=== PATIENT | male | born 1950 | race Caucasian/White ===

== ENCOUNTER 2016-05-22 12:29 | Inpatient (IN) | payer OTHER ==
--- NOTE | ~2016-05-22 | CN ---
Consultation Report [facility] [address] [place]. [address] NAME: JHOAN HUBER : 48 STATUS : ADM IN PAT#: [id number] AGE: 65 ADM/REG DATE : 05/22/16 MR#: [id number] REPORT SERV DATE: 05/24/16 DICTATED BY: DICKSON SOLORZANO DATE: 05/24/16 REPORT STATUS : Draft TRANSCRIBED BY: MODL DATE: 05/24/16 CONSULT REPORT DATE OF CONSULTATION: 05/24/2016 NURSE PRACTITIONER WITH [facility] REASON FOR CONSULTATION: Multivessel coronary artery disease. HISTORY OF PRESENT ILLNESS: This is a pleasant 65-year-old male with no significant past medical history, who was admitted on 05/22/2016 after having 3 weeks of progressive shortness of breath with cough. He thought this might be due to bronchitis which he occasionally gets. He had an outpatient workup done which showed an elevated BNP of 550 and a chest x-ray that showed right pleural effusion and diffuse infiltrates suggestive of a new diagnosis of CHF. He was admitted to [facility] and troponin upon admission was 1.1. The patient was diuresed and his symptoms improved. He was stabilized and taken for cardiac catheterization today and found to have multivessel coronary artery disease including a 95% distal left main coronary artery with 95% stenosis to his mid LAD with [id number] collaterals. He also has a 75% second obtuse marginal and a heavily calcified but nonobstructive right coronary artery. There was no mention of valvular abnormality and a left ventriculogram was not performed. CT surgery was consulted for evaluation of CAB. Currently the patient is recovering after radial catheterization with no complaints of chest pain or shortness of breath. The patient's son is upstairs in the patient's room and I updated him as well. PAST MEDICAL HISTORY: Osteoarthritis and occasional bronchitis. FAMILY HISTORY: Reviewed and noncontributory. SOCIAL HISTORY: The patient lives alone, disabled due to his arthritis. He says he has good family support. No alcohol abuse or use of illicit drugs. He does smoke cigarettes around a pack a day for 30 years. SURGICAL HISTORY: No major surgeries. ALLERGIES: NO KNOWN DRUG ALLERGIES. HOME MEDICATIONS: Mobic 7.5 mg p.o. b.i.d. as needed; hydrocodone 5/325 mg p.o. b.i.d. as needed; aspirin 325 mg per day; and ProAir HFA inhaler use as directed as needed. REVIEW OF SYSTEMS: A 10-point review of systems was obtained and is negative other than that in the HPI. PHYSICAL EXAMINATION: Consultation Report [facility] [id number] [place]. [address] NAME: JHOAN HUBER : [birth year] STATUS : ADM IN PAT#: [id number] AGE: 65 ADM/REG DATE : 05/22/16 MR#: [id number] REPORT SERV DATE: 05/24/16 DICTATED BY: DICKSON SOLORZANO DATE: 05/24/16 REPORT STATUS : Draft TRANSCRIBED BY: NELSY DATE: 05/24/16 VITAL SIGNS: From today temperature 98.1, heart rate 94, blood pressure 107/75, respiratory rate 20, and O2 saturation 94% on 2 L. GENERAL: Pleasant male, in no acute distress. NEUROLOGIC: Alert and oriented x3. Pupils exhibit PERRLA. HEENT: Head normocephalic and atraumatic. Several missing teeth but no obvious abscess. LUNGS: Clear to auscultation bilaterally with normal effort. CARDIAC: S1, S2 with no murmurs, rubs, or gallops. ABDOMEN: Soft, obese, and nontender with active bowel sounds. EXTREMITIES: Free of cyanosis, clubbing, or edema. LAB DATA: White blood cell count 7.8, hemoglobin 14, hematocrit 40, and platelets 224. Sodium 131, potassium 3.3, chloride 89, bicarbonate 28, BUN 14, and creatinine 0.7. Glucose 103. ASSESSMENT AND PLAN: This is a 65-year-old male with no significant past medical history who was admitted with shortness of breath and new onset CHF, taken for cardiac catheterization today and found to have severe flow-limiting disease with 95% distal left main coronary artery as above. Currently echocardiogram and carotid ultrasound are pending. I updated the patient as to the extent of his heart disease and why he needs bypass surgery. I discussed the risk and benefits of surgery as well as his STS risk scores. STS risk stratification for him and this particular surgery include an overall mortality of 0.8% and a morbidity mortality of 9.3%. Currently the patient is asymptomatic but we would like to proceed as soon as possible. He has been diuresed well and currently lungs are clear and he is on minimal oxygen. We will discuss plan of care with Dr. Adams and tentatively plan him for tomorrow afternoon. We will get a CT scan of the chest without contrast due to his longstanding history of tobacco abuse as well as bilateral lower extremity venous mapping. We would like to thank you for the consultation and we look forward to helping you take care of Mr. Jhoan Huber. Please let us know if we could be of any further assistance. ENE/NELSY Dickson Solorzano NP / [id number] CC: Lico Reed M.D.
--- NOTE | ~2016-05-22 | CN ---
Consultation Report [facility] [address] [place]. [address] NAME: JHOAN HUBER : [birth year] STATUS : ADM IN [facility]#: [id number] AGE: 65 ADM/REG DATE : 05/22/16 MR#: [id number] REPORT SERV DATE: 05/25/16 DICTATED BY: SANTOS YOUNG DATE: 05/25/16 REPORT STATUS : Draft TRANSCRIBED BY: MODL DATE: 05/25/16 CONSULTATION DATE OF CONSULTATION: REASON FOR REFERRAL: Probable lung cancer. HISTORY OF PRESENT ILLNESS: Mr. Huber is a 65-year-old gentleman who presented to the hospital with chest pain. He was found to have a non-ST elevation myocardial infarction. He underwent coronary catheterization and was found to have three-vessel coronary artery disease. He had an echocardiogram which showed an ischemic cardiomyopathy. He is dyspneic at rest and has orthopnea associated with CHF. Imaging revealed a large mediastinal mass. I personally reviewed a CT scan showing a right pleural effusion, enlarged anterior mediastinal adenopathy, and subcarinal adenopathy. I am worried about lung cancer in particular small cell carcinoma. He has occasional bronchitis and has been a heavy cigarette smoker. He has osteoarthritis that is well controlled. PAST MEDICAL HISTORY: Coronary artery disease, cardiomyopathy, bronchitis, osteoarthritis. FAMILY HISTORY: Negative for lung cancer. SOCIAL HISTORY: He lives alone. He is disabled. He does not use alcohol. He has been smoking a pack per day for approximately 30 years. REVIEW OF SYSTEMS: Complete review of systems was negative except as per the HPI. PHYSICAL EXAMINATION: GENERAL: Reveals a well-developed gentleman, who is dyspneic at rest 96.9, 121/77, 89, 18. HEENT: Eye exam shows the lids and conjunctivae are without lesions. Mouth: The lips and gums show no abnormalities. The oropharynx is without thrush or stomatitis. NECK: Supple. There is no thyromegaly. LYMPH NODE: Exam shows no palpable adenopathy. CARDIOVASCULAR: Exam reveals a regular rate and rhythm. There is 1+ lower extremity edema. LUNGS: Show decreased breath sounds on the right. SKIN: Exam shows no rashes or nodules. NEUROLOGIC: Exam shows grossly intact cranial nerves and strength. PSYCHIATRIC: Exam shows normal insight and judgment with appropriate mood and affect. ASSESSMENT: 1. Probable lung cancer. I think we need to make a tissue diagnosis. I will ask Pulmonary to assist us. I think starting with a thoracentesis which may offer symptom Consultation Report [facility] [id number] [place] [address] NAME: JHOAN HUBER : [birth year] STATUS : ADM IN PAT#: [id number] AGE: 65 ADM/REG DATE : 05/22/16 MR#: [id number] REPORT SERV DATE: 05/25/16 DICTATED BY: SANTOS YOUNG DATE: 05/25/16 REPORT STATUS : Draft TRANSCRIBED BY: MODL DATE: 05/25/16 relief will likely be our best bet. These nodes, I suspect could be biopsied by bronchoscopy or by CT-guided biopsy. 2. Dyspnea, likely need thoracentesis. 3. Three-vessel coronary artery disease and cardiomyopathy. This will complicate any therapy for cancer. This is overall an unfortunate situation. I will be following along with you. OUMAR/NELSY Santos Young M.D. / [id number] CC: Pamela Stallworth MD
--- NOTE | ~2016-05-22 | OP ---
Record Of Operation [facility] [address] [place]. [address] NAME: JHOAN HUBER : [birth year] STATUS : ADM IN PAT#: [id number] AGE: 65 ADM/REG DATE : 05/22/16 MR#: [id number] REPORT SERV DATE: 05/28/16 DICTATED BY: ANIL FORTUNE DATE: 05/28/16 REPORT STATUS : Draft TRANSCRIBED BY: MODL DATE: 05/28/16 DATE OF PROCEDURE: 05/28/2016 TIME: 1400 hours. PROCEDURE: Ultrasound guided right-sided thoracentesis. INDICATION: Moderate right-sided pleural effusion. PROCEDURE BROADBAND ENGINEER: Joel Fortune PA-C. CONSENT: Consent was obtained from the patient prior to the procedure. Diagnostic and therapeutic indications for thoracentesis were discussed as well as risks including life- threatening bleeding, pneumothorax, and even the possible necessity of chest tube placement. Benefits and alternatives were explained at length. Prior to the procedure, imaging studies were reviewed with Dr. Gruber, who agreed with the indication to proceed with thoracentesis. PROCEDURE SUMMARY: A time out was performed verifying correct patient, procedure, site, and positioning. The patient's right side of the chest was prepped and draped in a sterile manner using chlorhexidine scrub after the appropriate level was percussed and confirmed by ultrasound. U/S images were obtained and placed within the chart. 2% lidocaine with epinephrine was then used to anesthetize the region. A finder needle was then used to aspirate serosanguinous fluid. A 10-blade scalpel was then used to make a small incision. The thoracentesis catheter was then threaded into the pleural space without difficulty. The patient had 1100 mL of serosanguinous fluid removed. No immediate complications were noted during the procedure. A post-procedure chest x-ray is pending at the time of this dictation. The fluid will be sent for several studies. ESTIMATED BLOOD LOSS: Minimal. GBS/MODL Anil Fortune PA-C / [id number] CC: Lico Reed M.D.
--- NOTE | ~2016-05-22 | CN ---
Consultation Report [facility] [address] [place]. [address] NAME: JHOAN HUBER : [birth year] STATUS : ADM IN PAT#: [id number] AGE: 65 ADM/REG DATE : 05/22/16 MR#: [id number] REPORT SERV DATE: 05/26/16 DICTATED BY: DICKSON GRUBER IV DATE: 05/26/16 REPORT STATUS : Draft TRANSCRIBED BY: MODYara DATE: 05/26/16 PULMONARY CONSULTATION. DATE OF CONSULTATION: 05/26/2016 REASON FOR REQUEST: Pleural effusion and mediastinal mass. HISTORY OF PRESENT ILLNESS: History obtained from the records and from the patient. Mr. Huber is a 65-year-old male with a history of tobacco dependency, who presents with 10 days of increasing shortness of breath with findings of multivessel coronary disease with ischemic cardiomyopathy, and extensive mediastinal adenopathy with a right pleural effusion. The patient was in his normal state of health until by his report only about 10 days ago when he developed insidious onset of increasing shortness of breath. He had some vague right lower chest discomfort that he attributed to coughing. The cough was productive of scant predominantly clear mucus that did have some specks of blood. He denied any fevers, chills, sweats. He did have intermittent wheezing that he attributed to his throat. Exercise tolerance decreased significantly, now down to 50 feet. He noted no significant change in his voice. He is not usually on bronchodilator medications nor is he on supplemental oxygen though admits to not having good maintenance healthcare. Because of his progressive symptoms he sought evaluation. He was found to have a mildly elevated troponin with radiographic findings consistent with congestive heart failure. He has subsequently underwent extensive cardiac evaluation to include cardiac catheterization demonstrating severe three-vessel coronary artery disease to include a 95% left main lesion. Ejection fraction is severely reduced, though not quantified. As part of his evaluation for bypass, he underwent chest CT scan which demonstrated extensive mediastinal adenopathy/mass with a [id number] right pleural effusion, increased interstitial markings and central lobular emphysematous changes. We are asked to assist with the diagnosis of the mediastinal mass. PULMONARY HISTORY: Remarkable for no history of childhood asthma, known adult obstructive lung disease, or previous pneumonia. He is a more than 45-pack year smoking history by his report, quitting about a month ago. 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 He refuses immunizations secondary to past "bad reactions." PAST MEDICAL HISTORY: 1. Tobacco dependency. 2. Recently diagnosed coronary artery disease. 3. Ischemic cardiomyopathy. 4. Radiographic COPD. 5. Extensive adenopathy to include the left supraclavicular region. SURGERIES: No previous surgeries. ALLERGIES: NO KNOWN DRUG ALLERGIES. Consultation Report [facility] [id number] [place]. [address] NAME: JHOAN HUBER : 48 STATUS : ADM IN PAT#: [id number] AGE: 65 ADM/REG DATE : 05/22/16 MR#: [id number] REPORT SERV DATE: 05/26/16 DICTATED BY: DICKSON GRUBER IV DATE: 05/26/16 REPORT STATUS : Draft TRANSCRIBED BY: NELSY DATE: 05/26/16 CURRENT MEDICATIONS: The patient is on aspirin 81 mg daily, Bactroban twice a day to his nose, Coreg 3.125 mg twice a day, DuoNebs every four hours, Proventil q.2 hours as needed, or zinc 220 mg daily, and vitamin C twice a day. SOCIAL HISTORY: Remarkable for the tobacco use as above. He denies alcohol or illicit drug use. He is , has two children. FAMILY HISTORY: Remarkable for mother with congestive heart failure and coronary artery disease. REVIEW OF SYSTEMS: 14 systems reviewed and pertinent positives noted above. PHYSICAL EXAMINATION: GENERAL: On physical exam, this is an elderly male, appearing older than his stated age, in no respiratory distress at rest. He is alert awake and oriented. VITAL SIGNS: Temperature is 96.7, respiratory rate is 18, saturations are 99% on 2 L via nasal cannula, pulse is 92, blood pressure is 142/71. HEENT: The patient is normocephalic, atraumatic. Extraocular movements are intact. Pupils react to light. Sclerae and conjunctivae normal. He has nasal cannula in place. He has very poor dentition with multiple eroded teeth, marked gingival disease, and one tooth on his lower jaw. There is narrowing of the posterior pharyngeal space without any other oral lesions. NECK: The patient has a very firm conglomerate mass in his left supraclavicular region. There is no clear thyromegaly or more cephalad adenopathy. CHEST: The patient has decreased breath sounds. Dullness to percussion a quarter to a third of the way up the right hemithorax. Breath sounds are symmetrically diminished with a prolonged expiratory phase. No current wheezes or rhonchi are noted. There are some basilar inspiratory crackles. CARDIOVASCULAR: Jugular venous pulsations appear to be approximately 7 cm. He has 1+ carotid upstrokes. No obvious bruit. He has a distant regular S1, S2 with no clear S3 or murmur. There are premature beats. Peripheral pulses are diminished. ABDOMEN: Protuberant, soft. There are hypoactive bowel sounds. There is no palpable hepatosplenomegaly or mass. EXTREMITIES: Demonstrate no cyanosis, clubbing, or palpable cords. NEUROLOGIC: Strength is 5/5 and sensation intact to light touch. LABORATORY DATA: Chest x-ray demonstrates the small right pleural effusion with increased interstitial markings. Chest CT scan demonstrates extensive superior mediastinal mass with some calcifications. There is a conglomerate soft tissue mass in the left supraclavicular region. There is extensive adenopathy throughout the chest. There is a central lobular emphysematous changes. There is increased interstitial markings bilaterally with a mild-to- moderate right pleural effusion. There are coronary calcifications. CBC: Hemoglobin 12.8, hematocrit 37.1, platelet count was 191,000, and white blood cell Consultation Report [address] [place]. [address] NAME: JHOAN HUBER : 48 STATUS : ADM IN [facility]#: [id number] AGE: 65 ADM/REG DATE : 05/22/16 MR#: [id number] REPORT SERV DATE: 05/26/16 DICTATED BY: DICKSON GRUBER IV DATE: 05/26/16 REPORT STATUS : Draft TRANSCRIBED BY: NELSY DATE: 05/26/16 count is 7.8. INR is 1.2, PTT is 81.3. Chemistries: Sodium is 127, potassium 3.8, chloride 91, bicarb 25, BUN 10, creatinine 0.64, glucose of 98, magnesium is 1.8. Chemistries are otherwise unremarkable. Iron is 3.7, iron binding capacity is 361. Urinalysis is unremarkable. ASSESSMENT AND PLAN: 1. Respiratory. The patient has emphysema on chest CT scan, so will be treated as if this is in exacerbation. Prednisone will be given 40 mg daily x5 days, Anoro Ellipta will be given one puff daily, albuterol will be given via EzPAP q.4 hours while awake and q.2 hours as needed. The effusion could be cardiac or secondary to malignancy. To ensure diagnosis, we will do a CT or ultrasound-guided biopsy of the left supraclavicular mass, which is less operative risks than doing EBUS. Oxygen provided as needed to maintain saturation in the 90% to 94% range. Acapella valve will be given three times a day and albuterol nebulizer will be given via EzPAP. 2. Renal. We will replace the patient's magnesium and potassium. Check tomorrow. Phosphate level will be added to the blood in the lab. Urine will be sent for sodium as well as for urine osmolality to rule out syndrome of inappropriate secretion of antidiuretic hormone. 3. Neurologic. Thiamine will be given with his debilitated state 200 mg daily, Habitrol if needed for his recent tobacco dependency. 4. Hematologic. We will hold the heparin now for biopsy, restart postprocedure. 5. Infectious Disease. I doubt this is an infectious process, however, will check procalcitonin level. We discussed the benefits of the immunization therapy and he refuses. Thank you for consulting us. We will follow up the patient with you. ISIDRA/NELSY Dickson Gruber IV, M.D. / [id number] CC: Lico Reed M.D.
--- NOTE | ~2016-05-22 | HP ---
History And Physical [facility] [id number] [place]. [address] NAME: JHOAN HUBER : [birth year] STATUS : ADM IN [facility]#: [id number] AGE: 65 ADM/REG DATE : 05/22/16 MR#: [id number] REPORT SERV DATE: 05/22/16 DICTATED BY: LICO BRASWELL DATE: 05/22/16 REPORT STATUS : Draft TRANSCRIBED BY: MODL DATE: 05/22/16 DATE OF ADMISSION: 05/22/2016 CHIEF COMPLAINT: Dyspnea, bronchitis, congestive heart failure. HISTORY OF PRESENT ILLNESS: Mr. Huber is a 65-year-old man without significant past medical history. He has no prior history of congestive heart failure or cardiac disease. For about the last three weeks, he has had progressive symptoms of dyspnea associated with a cough. He has had some muscular type chest discomfort. His symptoms were worsening and he presented to [facility] in [place]. He had laboratory studies drawn notable for a BNP of 550. His chest x-ray shows a small to moderate-sized right pleural effusion with diffuse infiltrates most consistent with congestive heart failure. PAST MEDICAL HISTORY: 1. Arthritis. 2. Recent bronchitis. SOCIAL HISTORY: He is a smoker. He does not drink alcohol. FAMILY HISTORY: There is no family history of early coronary artery disease. REVIEW OF SYSTEMS: A complete review of systems was obtained, which is negative in detail except as mentioned above in the HPI. ALLERGIES: NO KNOWN DRUG ALLERGIES. MEDICATIONS AT HOME: Include albuterol inhaler, p.r.n. aspirin, p.r.n. hydrocodone, and p.r.n. meloxicam. PHYSICAL EXAMINATION: BLOOD PRESSURE: 125/89. PULSE: heart rate of 100. RESPIRATIONS: 16. GENERAL: Comfortable in no acute distress. HEENT: Anicteric. No xanthelasma. Lips without cyanosis. NECK: No JVD. Carotids 2+ and symmetric. No carotid bruits. LUNGS: Dullness to percussion and auscultation of the right base. Mild crackles are heard throughout the lung cameron with mild wheezes. COR: RRR. Normally placed PMI. Normal S1 and S2. No murmurs, rubs or gallops. ABD: Soft, nontender, nondistended. Normal bowel sounds. No abdominal bruits. EXT: No clubbing, cyanosis or edema 2+ and symmetric distal pulses. SKIN: Warm. Dry. No venous stasis changes. MS: No kyphosis. NEURO/PSYCH: Oriented x3. No anxiety or depression. LABORATORY STUDIES: BNP of 546, creatinine of 0.9, potassium of 4.4, hematocrit of 41.6. History And Physical [address] [place]. [address] NAME: JHOAN HUBER : 48 STATUS : ADM IN PAT#: [id number] AGE: 65 ADM/REG DATE : 05/22/16 MR#: [id number] REPORT SERV DATE: 05/22/16 DICTATED BY: LICO BRASWELL DATE: 05/22/16 REPORT STATUS : Draft TRANSCRIBED BY: NELSY DATE: 05/22/16 EK-lead EKG shows a baseline artifact. Heart rate of 103 beats per minute. Probable sinus rhythm. Nonspecific T-wave abnormalities are noted. Poor R-wave progression is noted. IMPRESSION: The patient is a 65-year-old man, presenting with worsening dyspnea over the last several weeks. Concern for congestive heart failure given the chest x-ray findings and BNP of 550. I have recommended rechecking his EKG. We will check troponin enzymes. I have recommended IV Lasix diuresis and nebulizer treatment. We will check an echocardiogram and consider further evaluation, possibly including cardiac catheterization depending on his clinical course and results of the echo. RADHA/NELSY Lico Braswell M.D. / [id number] CC: Lico Braswell M.D.
--- NOTE | ~2016-05-22 | DS ---
Discharge Summary [facility] [address] [place]. [address] NAME: JHOAN HUBER : 48 STATUS : DIS IN PAT#: [id number] AGE: 65 ADM/REG DATE : 05/22/16 MR#: [id number] REPORT SERV DATE: 06/11/16 DICTATED BY: LICO BRASWELL DATE: 06/10/16 REPORT STATUS : Draft TRANSCRIBED BY: NELSY DATE: 06/10/16 Data Collection from hospitalization DISCHARGE DIAGNOSES: 1. Coronary artery disease. 2. Ischemic cardiomyopathy-ejection fraction 25%. 3. Lung cancer. 4. Hyponatremia. 5. Type 2 myocardial infarction. 6. Acute hypoxic respiratory failure. 7. Tobacco use. 8. Osteoarthritis. 9. Cardiomyopathy. CONSULTATIONS: 1. Ronnie Rodriguez NP. 2. Santos Cortez M.D. 3. Ronnie Gruber M.D. PROCEDURES: 1. Cardiac catheterization, 05/24/2016. 2. Ultrasound-guided right-sided thoracentesis, 05/28/2016. 3. Carotid blood flow study, 05/24/2016. 4. Vein mapping of the bilateral lower extremities, 05/24/2016. 5. CT scan of the chest without contrast, 05/24/2016. 6. CT-guided biopsy of left supraclavicular nodule mass, 05/27/2016. PATHOLOGY: Right pleural fluid cytology (ThinPrep, Pap smears, and cell block)-positive for malignancy, fiber adenocarcinoma. Soft tissue CT-guided biopsy, left supraclavicular mass- large cell carcinoma. See comment. DISCHARGE MEDICATIONS: ProAir two puffs via inhaler as needed, aspirin 81 mg daily, Lipitor as instructed, Coreg 3.125 mg twice a day, Lasix 40 mg twice a day, [place] 5/325 one tablet twice a day as needed, Prinivil 5 mg daily, Mobic 7.5 mg twice a day as needed, nitroglycerin 0.4 mg sublingually as needed, Deltasone 40 mg daily, Anoro Ellipta 1 inhalation daily. He was instructed not to take aspirin 325 mg. This was changed to 81 mg. CONDITION ON DISCHARGE: Stable. DISPOSITION: The patient was discharged home to be followed by Home Health Care on a low- sodium diet with 1500 mL fluid restriction and activities as instructed. He would follow up with Dr. Ronnie Gruber in four to six weeks following discharge. He would follow up with Dr. Marily Klein the week following discharge, Dr. Lico Braswell, three to four weeks following discharge. HOSPITAL COURSE: This is a 65-year-old man without a significant past medical history. He has no prior history of congestive heart failure or cardiac disease. Over the past three weeks prior to admission, he had progressive symptoms of dyspnea associated with cough. He Discharge Summary [address] [address] NAME: JHOAN HUBER : 48 STATUS : DIS IN PAT#: [id number] AGE: 65 ADM/REG DATE : 05/22/16 MR#: [id number] REPORT SERV DATE: 06/11/16 DICTATED BY: LICO BRASWELL DATE: 06/10/16 REPORT STATUS : Draft TRANSCRIBED BY: NELSY DATE: 06/10/16 had some muscular-type of chest discomfort. His symptoms were worsening and he presented to the [facility] in [place]. He had lab studies drawn that were notable for BNP at 550. His chest x-ray showed a small to moderate-sized right pleural effusion with diffuse infiltrates most consistent with congestive heart failure. He was admitted to the hospital at this time for further evaluation and treatment. Upon admission, his EKG showed baseline artifact. Heart rate of 103 beats per minute. Probable sinus rhythm, nonspecific T-wave abnormalities were noted. Poor R-wave progression was noted. There was concern for congestive heart failure given the chest x-ray findings and BNP of 550. We were going to recheck the EKG. Troponin and enzymes will be checked. IV Lasix was going to begin as well as nebulizer treatment. Echocardiogram was requested. It was felt that he may need to undergo a cardiac catheterization. The following day, he still has some shortness of breath and a cough. IV heparin was started. He had bilateral wheezes. His abdomen was soft and nontender. He had no edema. Troponin was elevated consistent with gnn-QT-danlhldih myocardial infarction. Troponin level was 0.71. Plans were made for the patient to undergo a cardiac catheterization. On 05/24/2016, he had no chest pain. His shortness of breath was somewhat better. His lungs were clear bilaterally. Echocardiogram was performed. The patient was taken to the [facility] where he underwent the above-mentioned procedures. He tolerated this well. There were no complications. Postoperatively, he was seen by Ronnie Rodriguez regarding multivessel coronary artery disease. Cardiac catheterization had revealed multivessel coronary artery disease including 95% distal left main coronary artery with 95% stenosis in the mid LAD with right- to-left collaterals. He also has 75% second obtuse marginal and heavily calcified but nonobstructive right coronary artery. There was no mention of valvular abnormality and left ventriculogram was not performed. It was felt that the patient may need to undergo coronary artery bypass grafting. The patient was currently asymptomatic but it was felt we may need to proceed as soon as possible. He has been diuresed well and currently his lungs were clear. He was on minimal oxygen. A carotid blood flow study was performed as well as vein mapping of the bilateral lower extremities. A CT scan of the chest without contrast was also performed. On 05/25/2016, coronary artery bypass grafting was canceled secondary to concerns about a 7 x 10 x 6 cm right mediastinal mass that was suggestive of carcinoma. This was seen on the CT scan. Also had moderate right pleural effusion. These dramatic developments have been found on CT scan of the chest. Echocardiogram had revealed ejection fraction of 25%. He had no chest pain. He was seen in consultation by Dr. Santos Cortez regarding probable lung cancer. He is dyspneic at rest and has orthopnea associated with congestive heart failure. Imaging had revealed a large mediastinal mass. CT scan had shown right pleural effusion and enlarged anterior mediastinal adenopathy and subcarinal adenopathy. There was concern about lung cancer-in particular small cell carcinoma. He has occasional bronchitis and has been a heavy cigarette smoker. He had smoked a pack per day for approximately 30 years. He felt we would need to make a tissue diagnosis. He felt that starting with a thoracentesis may offer symptom relief and would likely to be our best bet. These nodes he suspected could be biopsied by bronchoscopy or by CT-guided biopsy. The following day, he was seen by Dr. Ronnie Gruber regarding pleural effusion and mediastinal mass. Chest x-ray had demonstrated small right pleural effusion with increased interstitial markings. The chest CT scan had demonstrated extensive superior mediastinal mass with some calcification. Discharge Summary [address] [place]. [address] NAME: JHOAN HUBER : 48 STATUS : DIS IN PAT#: [id number] AGE: 65 ADM/REG DATE : 05/22/16 MR#: [id number] REPORT SERV DATE: 06/11/16 DICTATED BY: LICO BRASWELL DATE: 06/10/16 REPORT STATUS : Draft TRANSCRIBED BY: NELSY DATE: 06/10/16 There was a conglomerate soft-tissue mass in the left supraclavicular region. There was extensive adenopathy throughout the chest. There was a central lobular emphysematous change. There were increased interstitial markings bilaterally with mild to moderate right pleural effusion. There were coronary artery calcifications. Emphysema was seen on chest CT. This would be treated as if it were an exacerbation. Prednisone would be given daily for five days. Anoro Ellipta was started. Albuterol would be given via EzPAP. It was felt that the effusion could be cardiac or secondary to malignancy. To ensure a diagnosis, we would perform CT or ultrasound-guided biopsy of the left supraclavicular mass which had less operative risk than doing EBUS. Oxygen would be provided as needed to maintain saturations in the 90% to 94% range. Acapella valve would be given three times a day as well as albuterol nebulizer given via EzPAP. Magnesium and potassium would be replaced. Phosphate levels would be added to the blood work. Urine would be sent for sodium as well as for urine osmolality to rule out syndrome of inappropriate secretion of antidiuretic hormone. Thiamine would be given with his debilitated state daily. Habitrol would be given as needed for his recent tobacco dependency. Heparin was held for now. This would be restarted following the biopsy. He had some increased shortness of breath. He was anxious. He had no chest pain. IV Lasix was being given. On the , his lungs were clear bilaterally. He was changed to oral Lasix. ISELA inhibitor was added. CT-guided biopsy of left supraclavicular adenopathy was performed. Initial pathology reading indicated findings were positive for malignancy. On 05/28/2016, his shortness of breath was better. He had no chest pain. He did have some right rib pain. He also complained of some back pain. He was breathing better. He underwent right ultrasound-guided thoracentesis. 1100 mL of serosanguineous fluid was removed. The following day, he seemed to be breathing much better. He could take a deep breath and no cough. His effusion was exudative and presumed malignant. Cardiac medications were continued. On 05/30/2016, discharge instructions were given. Due to his improved and stable condition, he was discharged home to be followed by home health care with the above-stated instructions. Information collected by: Miguelina Patterson I submit the above information as my discharge summary. LEXIS/NELSY Lico Braswell M.D. / [id number] CC: Pamela Stallworth M.D. Nathan S. Woody, NP
[2016-05-22] MEDS ORDERED: NORCO1 TA1 PO (15:32)
[2016-05-22] MEDS ORDERED: MOBIC7.5 PO (15:32)
[2016-05-22] MEDS ORDERED: ASA5GR PO (15:33)
[2016-05-22] MEDS ORDERED: PROAIR HFA INH (15:33)
[2016-05-23 00:11] LABS: BASOPHILS 0.3 %; BASOPHILS ABSOLUTE 0.03 10/3/uL (0.0-0.16); EOSINOPHILS 0.4 %; EOSINOPHILS ABSOLUTE 0.04 10/3/uL (0.0-0.53); HEMATOCRIT 38.3 % (40.0-51.0); HEMOGLOBIN 13.5 g/dL (13.6-17.8); IMMATURE GRANULOCYTES 0.3 %; IMMATURE GRANULOCYTES ABSOLUTE 0.03 10/3/uL (0.0-0.11); LYMPHOCYTES 20.9 %; LYMPHOCYTES ABSOLUTE 1.95 10/3/uL (0.67-4.30); MEAN CORPUS HGB CONC 35.2 g/dL (32.0-36.0); MEAN CORPUSCULAR HEMOGLOB 31.3 pg (26.0-34.0); MEAN CORPUSCULAR VOLUME 88.7 fL (80-100); MONOCYTES ABSOLUTE 1.03 10/3/uL (0.21-1.20); NEUTROPHILS 67.1 %; NEUTROPHILS ABSOLUTE 6.27 10/3/uL (2.02-8.40); PLATELET COUNT 218 10/3/uL (150-400); RBC DISTRIBUTION WIDTH 13.9 % (12.0-16.0); RED CELL COUNT 4.32 10/6/uL (4.7-6.1); WHITE BLOOD CELLS 9.4 10/3/uL (4.5-10.5)
[2016-05-23 00:12] LABS: MANUAL DIFF NO %
[2016-05-23 00:23] LABS: INTERNATIONAL NORMAL RATI 1.2 UNITS (-); PARTIAL THROMBO TIME 30.9 SEC (22.5-37.2); PROTIME (NOT ORD) 14.7 SEC (12.0-14.5)
[2016-05-23 06:32] LABS: BASOPHILS 0.5 %; BASOPHILS ABSOLUTE 0.04 10/3/uL (0.0-0.16); EOSINOPHILS 0.6 %; EOSINOPHILS ABSOLUTE 0.05 10/3/uL (0.0-0.53); HEMATOCRIT 38.9 % (40.0-51.0); HEMOGLOBIN 13.3 g/dL (13.6-17.8); IMMATURE GRANULOCYTES 0.2 %; IMMATURE GRANULOCYTES ABSOLUTE 0.02 10/3/uL (0.0-0.11); LYMPHOCYTES 24.9 %; LYMPHOCYTES ABSOLUTE 2.18 10/3/uL (0.67-4.30); MEAN CORPUS HGB CONC 34.2 g/dL (32.0-36.0); MEAN CORPUSCULAR HEMOGLOB 30.2 pg (26.0-34.0); MEAN CORPUSCULAR VOLUME 88.2 fL (80-100); MEAN PLATELET VOLUME 9.6 fL (9.2-13.0); MONOCYTES 11.8 %; MONOCYTES ABSOLUTE 1.03 10/3/uL (0.21-1.20); NEUTROPHILS ABSOLUTE 5.42 10/3/uL (2.02-8.40); PLATELET COUNT 243 10/3/uL (150-400); RED CELL COUNT 4.41 10/6/uL (4.7-6.1); WHITE BLOOD CELLS 8.7 10/3/uL (4.5-10.5)
[2016-05-23 06:33] LABS: MANUAL DIFF NO %
[2016-05-23 08:26] LABS: BUN (BLOOD UREA NITROGEN) 15 MG/DL (6-23); CALCIUM, SERUM 9.1 MG/DL (8.5-10.4); CHLORIDE, SERUM 93 MMOL/L (96-112); CO2 (CARBON DIOXIDE) 25 MMOL/L (24-34); CREATININE 0.83 MG/DL (0.70-1.30); GFR AFRICAN AMERICAN 106 ML/MIN (>=60); GFR NON AFRICAN AMERICAN 92 ML/MIN (>=60); GLUCOSE, SERUM 93 MG/DL (60-99); SODIUM, SERUM 129 MMOL/L (135-148)
[2016-05-23 08:27] LABS: POTASSIUM, SERUM 4.2 MMOL/L (3.5-5.3); TROPONIN I 0.71 NG/ML (<0.05)
[2016-05-24 06:22] LABS: BASOPHILS 0.5 %; BASOPHILS ABSOLUTE 0.04 10/3/uL (0.0-0.16); EOSINOPHILS 0.9 %; EOSINOPHILS ABSOLUTE 0.07 10/3/uL (0.0-0.53); HEMATOCRIT 40.2 % (40.0-51.0); IMMATURE GRANULOCYTES 0.1 %; IMMATURE GRANULOCYTES ABSOLUTE 0.01 10/3/uL (0.0-0.11); LYMPHOCYTES 20.1 %; LYMPHOCYTES ABSOLUTE 1.57 10/3/uL (0.67-4.30); MEAN CORPUS HGB CONC 34.8 g/dL (32.0-36.0); MEAN CORPUSCULAR HEMOGLOB 30.5 pg (26.0-34.0); MEAN CORPUSCULAR VOLUME 87.6 fL (80-100); MEAN PLATELET VOLUME 9.3 fL (9.2-13.0); MONOCYTES 10.5 %; MONOCYTES ABSOLUTE 0.82 10/3/uL (0.21-1.20); NEUTROPHILS 67.9 %; NEUTROPHILS ABSOLUTE 5.31 10/3/uL (2.02-8.40); PLATELET COUNT 224 10/3/uL (150-400); RBC DISTRIBUTION WIDTH 13.7 % (12.0-16.0); RED CELL COUNT 4.59 10/6/uL (4.7-6.1); WHITE BLOOD CELLS 7.8 10/3/uL (4.5-10.5)
[2016-05-24 06:24] LABS: MANUAL DIFF NO %
[2016-05-24 06:26] LABS: INTERNATIONAL NORMAL RATI 1.2 UNITS (-); PROTIME (NOT ORD) 14.8 SEC (12.0-14.5)
[2016-05-24 06:27] LABS: PARTIAL THROMBO TIME 67.1 SEC (22.5-37.2)
[2016-05-24 06:35] LABS: BUN (BLOOD UREA NITROGEN) 14 MG/DL (6-23); CALCIUM, SERUM 9.3 MG/DL (8.5-10.4); CHLORIDE, SERUM 89 MMOL/L (96-112); CHOL/HDL RATIO(NOT ORDER) 2.6 (0-5); CHOLESTEROL 159 MG/DL (< 200); CO2 (CARBON DIOXIDE) 28 MMOL/L (24-34); CREATININE 0.73 MG/DL (0.70-1.30); GFR AFRICAN AMERICAN 112 ML/MIN (>=60); GFR NON AFRICAN AMERICAN 97 ML/MIN (>=60); GLUCOSE, SERUM 103 MG/DL (60-99); HDL CHOLESTEROL 62 MG/DL (> 39); LDL CHOLESTEROL 84 MG/DL (< 130); NON-HDL CHOLESTEROL 97 MG/DL (< 160); SODIUM, SERUM 131 MMOL/L (135-148); TRIGLYCERIDE 69 MG/DL (< 150)
[2016-05-24 06:36] LABS: POTASSIUM, SERUM 3.3 MMOL/L (3.5-5.3)
[2016-05-24 06:55] LABS: PLATELET ESTIMATE ADQ (ADEQUATE); RBC MORPHOLOGY NORM (NORMAL)
[2016-05-25 05:01] LABS: BASOPHILS 0.3 %; BASOPHILS ABSOLUTE 0.02 10/3/uL (0.0-0.16); EOSINOPHILS 2.1 %; EOSINOPHILS ABSOLUTE 0.16 10/3/uL (0.0-0.53); HEMATOCRIT 37.1 % (40.0-51.0); HEMOGLOBIN 12.8 g/dL (13.6-17.8); IMMATURE GRANULOCYTES 0.1 %; IMMATURE GRANULOCYTES ABSOLUTE 0.01 10/3/uL (0.0-0.11); LYMPHOCYTES 21.1 %; LYMPHOCYTES ABSOLUTE 1.64 10/3/uL (0.67-4.30); MEAN CORPUS HGB CONC 34.5 g/dL (32.0-36.0); MEAN CORPUSCULAR HEMOGLOB 30.1 pg (26.0-34.0); MEAN CORPUSCULAR VOLUME 87.3 fL (80-100); MEAN PLATELET VOLUME 9.3 fL (9.2-13.0); MONOCYTES 11.1 %; MONOCYTES ABSOLUTE 0.86 10/3/uL (0.21-1.20); NEUTROPHILS 65.3 %; NEUTROPHILS ABSOLUTE 5.07 10/3/uL (2.02-8.40); PLATELET COUNT 191 10/3/uL (150-400); RBC DISTRIBUTION WIDTH 13.6 % (12.0-16.0); RED CELL COUNT 4.25 10/6/uL (4.7-6.1); WHITE BLOOD CELLS 7.8 10/3/uL (4.5-10.5)
[2016-05-25 05:02] LABS: MANUAL DIFF NO %
[2016-05-25 05:03] LABS: INTERNATIONAL NORMAL RATI 1.2 UNITS (-); PROTIME (NOT ORD) 15.4 SEC (12.0-14.5)
[2016-05-25 05:17] LABS: % IRON SAT 10 % (20-50); A/G RATIO 0.8 (0.7-1.9); ALKALINE PHOSPHATASE 74 U/L (45-117); CHLORIDE, SERUM 91 MMOL/L (96-112); CO2 (CARBON DIOXIDE) 25 MMOL/L (24-34); CREATININE 0.64 MG/DL (0.70-1.30); GFR AFRICAN AMERICAN 118 ML/MIN (>=60); GFR NON AFRICAN AMERICAN 102 ML/MIN (>=60); GLOBULIN 3.8 G/DL (2.5-4.1); GLUCOSE, SERUM 98 MG/DL (60-99); IRON BINDING CAPACITY 361 MCG/DL (250-450); IRON, SERUM 37 MCG/DL (35-150); POTASSIUM, SERUM 3.8 MMOL/L (3.5-5.3); SGOT(AST) 37 U/L (5-40); SGPT(ALT) 21 U/L (5-65); SODIUM, SERUM 127 MMOL/L (135-148); TOTAL PROTEIN 6.8 G/DL (6.0-8.5)
[2016-05-25 05:21] LABS: BUN (BLOOD UREA NITROGEN) 10 MG/DL (6-23)
[2016-05-25 12:43] LABS: WBC (NOT ORDERED) (RFLEX) 0 (0-5)
[2016-05-25 13:27] LABS: ASCORBIC ACID (UR NOT ORDER) NEG (NEG); BILIRUBIN, URINE NEGATIVE (NEG); KETONE, URINE 20 MG/DL (NEG); LEUKOCYTE ESTERASE(NOT OR NEG (NEG)
[2016-05-26 10:31] LABS: BASOPHILS 0.3 %; BASOPHILS ABSOLUTE 0.02 10/3/uL (0.0-0.16); EOSINOPHILS 0.7 %; EOSINOPHILS ABSOLUTE 0.05 10/3/uL (0.0-0.53); HEMOGLOBIN 13.4 g/dL (13.6-17.8); IMMATURE GRANULOCYTES 0.1 %; IMMATURE GRANULOCYTES ABSOLUTE 0.01 10/3/uL (0.0-0.11); LYMPHOCYTES 11.1 %; LYMPHOCYTES ABSOLUTE 0.85 10/3/uL (0.67-4.30); MEAN CORPUS HGB CONC 35.3 g/dL (32.0-36.0); MEAN CORPUSCULAR HEMOGLOB 30.7 pg (26.0-34.0); MEAN CORPUSCULAR VOLUME 87.2 fL (80-100); MEAN PLATELET VOLUME 9.3 fL (9.2-13.0); MONOCYTES 11.1 %; MONOCYTES ABSOLUTE 0.85 10/3/uL (0.21-1.20); NEUTROPHILS 76.7 %; PLATELET COUNT 190 10/3/uL (150-400); RBC DISTRIBUTION WIDTH 13.3 % (12.0-16.0); RED CELL COUNT 4.36 10/6/uL (4.7-6.1); WHITE BLOOD CELLS 7.7 10/3/uL (4.5-10.5)
[2016-05-26 10:32] LABS: MANUAL DIFF NO %
[2016-05-26 10:38] LABS: INTERNATIONAL NORMAL RATI 1.1 UNITS (-); PARTIAL THROMBO TIME 44.5 SEC (22.5-37.2); PROTIME (NOT ORD) 14.2 SEC (12.0-14.5)
[2016-05-26 10:43] LABS: PHOSPHORUS, SERUM 2.6 MG/DL (2.5-4.5)
[2016-05-26 11:33] LABS: PROCALCITONIN 0.05 ng/mL (<0.5)
[2016-05-27 07:13] LABS: BASOPHILS 0.2 %; BASOPHILS ABSOLUTE 0.01 10/3/uL (0.0-0.16); EOSINOPHILS 0.2 %; EOSINOPHILS ABSOLUTE 0.01 10/3/uL (0.0-0.53); HEMOGLOBIN 13.3 g/dL (13.6-17.8); LYMPHOCYTES 17.3 %; LYMPHOCYTES ABSOLUTE 1.08 10/3/uL (0.67-4.30); MEAN CORPUSCULAR HEMOGLOB 29.8 pg (26.0-34.0); MEAN PLATELET VOLUME 9.6 fL (9.2-13.0); MONOCYTES 11.5 %; MONOCYTES ABSOLUTE 0.72 10/3/uL (0.21-1.20); NEUTROPHILS 70.8 %; NEUTROPHILS ABSOLUTE 4.43 10/3/uL (2.02-8.40); PLATELET COUNT 197 10/3/uL (150-400); RBC DISTRIBUTION WIDTH 13.5 % (12.0-16.0); RED CELL COUNT 4.47 10/6/uL (4.7-6.1); WHITE BLOOD CELLS 6.3 10/3/uL (4.5-10.5)
[2016-05-27 07:15] LABS: MANUAL DIFF NO %
[2016-05-27 07:27] LABS: ALBUMIN 3.4 G/DL (3.5-5.0); BUN (BLOOD UREA NITROGEN) 12 MG/DL (6-23); CALCIUM, SERUM 9.1 MG/DL (8.5-10.4); CHLORIDE, SERUM 85 MMOL/L (96-112); CO2 (CARBON DIOXIDE) 28 MMOL/L (24-34); CREATININE 0.72 MG/DL (0.70-1.30); GFR AFRICAN AMERICAN 113 ML/MIN (>=60); GFR NON AFRICAN AMERICAN 97 ML/MIN (>=60); GLUCOSE, SERUM 93 MG/DL (60-99); PHOSPHORUS, SERUM 2.4 MG/DL (2.5-4.5); POTASSIUM, SERUM 3.6 MMOL/L (3.5-5.3); SODIUM, SERUM 124 MMOL/L (135-148)
[2016-05-28 06:07] LABS: BASOPHILS 0.2 %; BASOPHILS ABSOLUTE 0.01 10/3/uL (0.0-0.16); EOSINOPHILS 0.3 %; EOSINOPHILS ABSOLUTE 0.02 10/3/uL (0.0-0.53); HEMATOCRIT 37.9 % (40.0-51.0); HEMOGLOBIN 13.2 g/dL (13.6-17.8); IMMATURE GRANULOCYTES 0.3 %; IMMATURE GRANULOCYTES ABSOLUTE 0.02 10/3/uL (0.0-0.11); LYMPHOCYTES 15.7 %; LYMPHOCYTES ABSOLUTE 1.04 10/3/uL (0.67-4.30); MEAN CORPUS HGB CONC 34.8 g/dL (32.0-36.0); MEAN CORPUSCULAR HEMOGLOB 30.1 pg (26.0-34.0); MEAN CORPUSCULAR VOLUME 86.3 fL (80-100); MEAN PLATELET VOLUME 9.7 fL (9.2-13.0); MONOCYTES 18.9 %; MONOCYTES ABSOLUTE 1.25 10/3/uL (0.21-1.20); NEUTROPHILS 64.6 %; NEUTROPHILS ABSOLUTE 4.29 10/3/uL (2.02-8.40); PLATELET COUNT 176 10/3/uL (150-400); RBC DISTRIBUTION WIDTH 13.8 % (12.0-16.0); RED CELL COUNT 4.39 10/6/uL (4.7-6.1); WHITE BLOOD CELLS 6.6 10/3/uL (4.5-10.5)
[2016-05-28 06:09] LABS: BUN (BLOOD UREA NITROGEN) 16 MG/DL (6-23); CHLORIDE, SERUM 89 MMOL/L (96-112); CO2 (CARBON DIOXIDE) 30 MMOL/L (24-34); CREATININE 0.83 MG/DL (0.70-1.30); GFR AFRICAN AMERICAN 106 ML/MIN (>=60); GFR NON AFRICAN AMERICAN 92 ML/MIN (>=60); GLUCOSE, SERUM 91 MG/DL (60-99); PHOSPHORUS, SERUM 3.7 MG/DL (2.5-4.5); POTASSIUM, SERUM 3.6 MMOL/L (3.5-5.3); SODIUM, SERUM 128 MMOL/L (135-148)
[2016-05-28 06:15] LABS: MANUAL DIFF NO %
[2016-05-28 15:09] LABS: GLUCOSE BODY FL (NOT ORD) 116 MG/DL; LDH BODY FLUID (NOT ORD) 327 U/L; PROTEIN BODY FLUID 4.1 G/DL
[2016-05-28 15:45] LABS: BD FL LYMPH (NOT ORD) 87 %; BD FL SOURCE (NOT ORD) PLEURAL; BF BASO (NOT OF) 0 %; BF LARGE MONONUCLEAR 12 %; BODY FLUID EOS (NOT ORD) 0 %; BODY FLUID SEG (NOT ORD) 1 %
[2016-05-28 15:53] LABS: TOTAL PROTEIN 7.5 G/DL (6.0-8.5)
[2016-05-28 17:46] LABS: BF TOTAL CELL CT (NOT ORD 2067 /MM3; BODY FLUID RBC (NOT ORD) 16655 /MM3
[2016-05-29 05:32] LABS: ALBUMIN 3.3 G/DL (3.5-5.0); BUN (BLOOD UREA NITROGEN) 13 MG/DL (6-23); CALCIUM, SERUM 9.4 MG/DL (8.5-10.4); CHLORIDE, SERUM 88 MMOL/L (96-112); CO2 (CARBON DIOXIDE) 31 MMOL/L (24-34); CREATININE 0.65 MG/DL (0.70-1.30); GFR AFRICAN AMERICAN 118 ML/MIN (>=60); GFR NON AFRICAN AMERICAN 101 ML/MIN (>=60); GLUCOSE, SERUM 89 MG/DL (60-99); PHOSPHORUS, SERUM 3.1 MG/DL (2.5-4.5); POTASSIUM, SERUM 4.1 MMOL/L (3.5-5.3); SODIUM, SERUM 127 MMOL/L (135-148)
[2016-05-29 05:50] LABS: HEMATOCRIT 40.6 % (40.0-51.0); HEMOGLOBIN 14.2 g/dL (13.6-17.8); MEAN CORPUSCULAR HEMOGLOB 30.6 pg (26.0-34.0); MEAN CORPUSCULAR VOLUME 87.5 fL (80-100); MEAN PLATELET VOLUME 9.8 fL (9.2-13.0); PLATELET COUNT 177 10/3/uL (150-400); RBC DISTRIBUTION WIDTH 13.8 % (12.0-16.0); RED CELL COUNT 4.64 10/6/uL (4.7-6.1); WHITE BLOOD CELLS 4.9 10/3/uL (4.5-10.5)
[2016-05-29 06:04] LABS: MANUAL DIFF YES %
[2016-05-29 06:31] LABS: BAND NEUTROPHILS 1 %; LYMPHOCYTES 11 %; LYMPHOCYTES ABSOLUTE (CALC) 0.54 10/3/uL (0.67-4.30); MONOCYTES 8 %; MONOCYTES ABSOLUTE (CALC) 0.39 10/3/uL (0.21-1.20); NEUTROPHILS ABSOLUTE (CALC) 3.97 10/3/uL (2.02-8.40); PLATELET ESTIMATE ADQ (ADEQUATE); RBC MORPHOLOGY NORM (NORMAL); SEGMENTED NEUTROPHIL (0) 80 %; TOTAL NUCLEATED CELLS 100
[2016-05-30] MEDS ORDERED: ASAB PO (10:15)
[2016-05-30] MEDS ORDERED: COREG3 PO (10:16)
[2016-05-30] MEDS ORDERED: LIPITOR40 (10:16)
[2016-05-30] MEDS ORDERED: L40 PO (10:17)
[2016-05-30] MEDS ORDERED: PRIN5 PO (10:17)
[2016-05-30] MEDS ORDERED: ANOROELLIPTA INH (10:18)
[2016-05-30] MEDS ORDERED: P20 PO (10:19)
[2016-05-30] MEDS ORDERED: NTG150 SL (10:20)
== END 2016-05-30 13:32 | disposition home health service (06) | DRG 264 ==
LOC: ER 12:29 → 7NO 15:25 → CVICU 05-25 11:04 → 7NO 05-25 11:48
PROVIDERS: Internal Medicine Cardiovascular Disease; Internal Medicine Critical Care Medicine; Physician Assistant Medical
PROC: 4A023N7 Measurement of Cardiac Sampling and Pressure, Left Heart, Percutaneous Approach (ICD-10-PCS; principal; 2016-05-24)
PROC: B2111ZZ Fluoroscopy of Multiple Coronary Arteries using Low Osmolar Contrast (ICD-10-PCS; 2016-05-24)
PROC: 07B73ZX Excision of Thorax Lymphatic, Percutaneous Approach, Diagnostic (ICD-10-PCS; 2016-05-24)
PROC: 0W993ZZ Drainage of Right Pleural Cavity, Percutaneous Approach (ICD-10-PCS; 2016-05-28)
DX: I50.21 Acute systolic (congestive) heart failure (principal); J96.01 Acute respiratory failure with hypoxia; I21.4 Non-ST elevation (NSTEMI) myocardial infarction; J91.0 Malignant pleural effusion; C34.90 Malignant neoplasm of unspecified part of unspecified bronchus or lung; E87.1 Hypo-osmolality and hyponatremia; I25.10 Atherosclerotic heart disease of native coronary artery without angina pectoris; I25.5 Ischemic cardiomyopathy; Z79.82 Long term (current) use of aspirin; F17.210 Nicotine dependence, cigarettes, uncomplicated
CPT/HCPCS: 36415; 38505; 71010; 71020; 71250; 77012; 80048; 80053; 80061; 80069; 81001; 82945; 83036; 83540; 83550; 83615; 83735; 83880; 83986; 84100; 84145; 84155; 84157; 84484; 85025; 85610; 85730; 86850; 86900; 86901; 87015; 87070; 87102; 87116; 87205; 87641; 88112; 88305; 88333; 88341; 88342; 89051; 93005; 93458; 93880; 94640; 94668; 96374; 99152; 99153; 99285; A9270-GY; C1769; C1887; C1894; C8929; G0365; G0463; J0690; J2250; J2440; J3010; J3370; J3411; J3480; P9045; Q9957; Q9967

== ENCOUNTER 2016-06-13 03:42 | Inpatient (IN) | payer OTHER ==
--- NOTE | ~2016-06-13 | PRECARD ---
H&P PRE [facility] [address] [place]. [address] NAME: JHOAN HUBER : [birth year] STATUS : ADM IN [facility]#: [id number] AGE: 65 ADM/REG DATE : 06/13/16 MR#: [id number] REPORT SERV DATE: 06/13/16 DICTATED BY: DAVID LAINEZ. DATE: 06/13/16 REPORT STATUS : Draft TRANSCRIBED BY: NELSY DATE: 06/13/16 DATE OF ADMISSION: 06/13/2016 HISTORY: Mr. Jhoan Huber is a 65-year-old gentleman admitted with confusion, altered mental status, sodium 114, Cardiology is consulted because the troponin level is 0.19. Mr. Huber was hospitalized in 05/2016 at [facility] when catheterization demonstrated severe three-vessel coronary artery disease with ejection fraction 25%. He was found to have newly diagnosed lung cancer. He had a 7 x 10 x 6 right mediastinal mass, suggestive of carcinoma. He had a pleural perfusion. Given the CT finding of extensive superior mediastinal mass, calcification, extensive adenopathy, pleural effusion. He is felt to be a poor candidate for bypass surgery. He presents now with confusion, lethargy. The son reports that he was sitting in a stool, agitated, confusion. On repeated questioning, he absolutely denies any chest discomfort. He denies orthopnea or PND. His son states he has had no evidence of dyspnea or chest discomfort. PAST MEDICAL HISTORY: Coronary artery disease; lung cancer; ejection fraction 25%; prior hyponatremia, sodium 127 earlier this year; COPD; pneumonia. SOCIAL HISTORY: Tobacco. No alcohol. Lives with his girlfriend, . MEDICATIONS: ProAir, aspirin, Lipitor, Coreg, Lasix, hydrocodone, lisinopril, Mobic, prednisone. PHYSICAL EXAMINATION: VITAL SIGNS: Blood pressure about 100/70, heart rate about 80. GENERAL: He appears chronically ill, confused, lethargic, but arousable. HEENT: No sign of xanthelasma. LUNGS: Decreased breath sounds bilaterally. CARDIOVASCULAR: 2/6 murmur at the apex. ABDOMEN: No obvious mass. EXTREMITIES: Moderate edema. DATA: White count 17.3, hematocrit 38.3, platelet count is 206. Sodium is 114, BUN is 10, creatinine is 0.7, troponin 0.19, BNP 879. EKG with atrial fibrillation, ventricular response about [address]-T wave changes. ASSESSMENT: Mr. Huber is a 65-year-old gentleman with known coronary artery disease, multivessel disease, ejection fraction 25%. He has had recent diagnosis of lung cancer. His major problem is confusion and hyponatremia. He has atrial fibrillation, ventricular response about 80. Troponin level of 0.19 is noted, he has absolutely no chest discomfort whatsoever. I do not think he has an acute coronary syndrome. We will control the atrial fibrillation by continuation of the diltiazem IV which has already been started. If he [facility]P PRE [place] [address] [facility] [place]. [address] NAME: JHOAN HUBER : 48 STATUS : ADM IN [facility]#: [id number] AGE: 65 ADM/REG DATE : 06/13/16 MR#: [id number] REPORT SERV DATE: 06/13/16 DICTATED BY: DAVID LAINEZ. DATE: 06/13/16 REPORT STATUS : Draft TRANSCRIBED BY: NELSY DATE: 06/13/16 develops hypotension, we may need to switch to amiodarone. PLAN: 1. Nephrology has been consulted to assist with addressing his electrolyte abnormalities. 2. Continue diltiazem IV. 3. Discontinue furosemide, lisinopril, meloxicam. 4. I do not think any other cardiac study is indicated, a recent echocardiogram demonstrated ejection fraction of 25%. RICARDO/NELSY David Lainez M.D. / [id number] CC: Pushpa Dimas M.D.
--- NOTE | ~2016-06-13 | CN ---
Consultation Report [facility] [address] [place]. [address] NAME: JHOAN HUBER : [birth year] STATUS : ADM IN PAT#: [id number] AGE: 65 ADM/REG DATE : 06/13/16 MR#: [id number] REPORT SERV DATE: 06/13/16 DICTATED BY: REGINA WELDON DATE: 06/13/16 REPORT STATUS : Draft TRANSCRIBED BY: MODL DATE: 06/13/16 NEPHROLOGY CONSULTATION DATE OF CONSULTATION: 06/13/2016 REASON FOR CONSULTATION: Hyponatremia. HISTORY OF PRESENT ILLNESS: Mr. Huber is a pleasant, but unfortunate 65-year-old white male with multiple medical problems including three-vessel coronary artery disease, systolic congestive heart failure, COPD, and recently diagnosed lung cancer, who had been hospitalized earlier this month with non ST-elevation VT. He underwent cardiac catheterization, which showed three-vessel disease. As he was being evaluated for CABG, he had a thoracentesis, which ultimately led to a diagnosis of lung cancer. He was brought to the hospital today due to progressive lethargy, irritability, and confusion. On the day of admission, he was altered and it actually defecated on himself. He was saying nonsensical things at times, was lethargic, and difficult to arouse. On evaluation in the ER, he was found to have serum sodium of 114. His last sodium here was noted to be 127 on 05/29/2016 and had ranged from 124 to 131. He is presently being seen in the ICU, he is awake and alert, in no overt distress, but is confused. PAST MEDICAL HISTORY: 1. Three-vessel coronary artery disease. 2. Lung cancer. 3. Systolic congestive heart failure, ejection fraction 25%. 4. Hyponatremia, last serum sodium 127. 5. Malignant pleural effusion. 6. Childhood asthma. 7. COPD. 8. Pneumonia. PAST SURGICAL HISTORY: None documented. SOCIAL HISTORY: Smokes cigarettes. No alcohol. He has been living with his girlfriend. He is . He is disabled and has two sons, living in [place], [place]. FAMILY HISTORY: Mother with history of congestive heart failure and coronary artery disease. No family history of lung cancer. HOME MEDICATIONS: 1. ProAir. 2. Aspirin 81 daily. 3. Lipitor. 4. Coreg 3.25 twice a day. 5. Lasix 40 b.i.d. Consultation Report [facility] [address] [place]. [address] NAME: JHOAN HUBER : [birth year] STATUS : ADM IN PAT#: [id number] AGE: 65 ADM/REG DATE : 06/13/16 MR#: [id number] REPORT SERV DATE: 06/13/16 DICTATED BY: REGINA WELDON DATE: 06/13/16 REPORT STATUS : Draft TRANSCRIBED BY: MODYara DATE: 06/13/16 6. Hydrocodone. 7. Prinivil 5 daily. 8. Mobic 7.5 as needed. 9. Prednisone 40 daily. REVIEW OF SYSTEMS: All systems reviewed and negative excluding those mentioned and highlighted in history of present illness. PHYSICAL EXAMINATION: VITAL SIGNS: Blood pressure 105/67, oxygen saturation 96%, temperature 97.6, respiratory rate 18. GENERAL: This is a chronically ill, somewhat confused white male, resting, in no overt distress. HEENT: Normocephalic, atraumatic. Oropharynx clear. No exudate. NECK: Supple. No JVD or thyromegaly. No carotid bruits. Trachea midline. No stridor. CARDIOVASCULAR: Regular rate and rhythm. S1-S2. No rubs or gallops. Point of maximal impulse nondisplaced. RESPIRATORY: Mostly clear. No wheeze, rhonchi, tachypnea, or accessory muscles in use. GI: Abdomen is soft, nontender, nondistended. No hepatosplenomegaly appreciated. EXTREMITIES: No cyanosis, clubbing. Distal pulses 2+ symmetrically intact. Trace peripheral edema. SKIN: No rash or breakdown. Normal turgor. NEUROLOGIC: Cranial nerves 2 through 12 grossly intact. Motor sensory examinations within normal limits excluding confusion. MUSCULOSKELETAL: Full range of motion in all joints. No crepitus or joint effusions. SKIN: No rash or breakdown. Normal turgor. LABS AND DIAGNOSTIC DATA: Sodium 114, potassium 3.4, chloride 73, bicarb 28, BUN 10, creatinine 0.76 at 08:55 a.m. ASSESSMENT: 1. [id number] hyponatremia with baseline sodium 127 to 131, admitted with sodium of 114 with encephalopathy. 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 2. Lung cancer. 3. Coronary artery disease with systolic congestive heart failure, ejection fraction of 25%. 4. Atrial fibrillation. 5. Atrial sacral decubitus ulcers. PLAN: 1. Urine and serum osmolalities, TSH has been obtained which is normal. 2. Serial sodium checks. 3. We will initiate 3% saline at conservative rate and see how he responds. We will need Consultation Report [address] [place]. [address] NAME: JHOAN HUBER : 48 STATUS : ADM IN PAT#: [id number] AGE: 65 ADM/REG DATE : 06/13/16 MR#: [id number] REPORT SERV DATE: 06/13/16 DICTATED BY: REGINA WELDON DATE: 06/13/16 REPORT STATUS : Draft TRANSCRIBED BY: NELSY DATE: 06/13/16 to watch his volume status carefully using diuretics judiciously as needed. 4. Would place Garrison catheter for strict urinary output measurement. 5. May consider vaptan therapy, when his sodium has improved. The response can be somewhat unpredictable and with his encephalopathy, I think 3% has a more reliable response. Thank you for this consultation. DAVID/NELSY Regina Weldon M.D. / [id number] CC: Pushpa Dimas M.D.
--- NOTE | ~2016-06-13 | DS ---
Discharge Summary [facility] [address] [place]. [address] NAME: JHOAN HUBER : 48 STATUS : DIS IN PAT#: [id number] AGE: 65 ADM/REG DATE : 06/13/16 MR#: [id number] REPORT SERV DATE: 06/18/16 DICTATED BY: AMIRAH MATA DATE: 06/17/16 REPORT STATUS : Draft TRANSCRIBED BY: MODL DATE: 06/17/16 ADMISSION DATE: 06/13/2016 DISCHARGE DATE: 06/17/2016 SUMMARY ADMISSION DIAGNOSES: Severe hyponatremia, encephalopathy, chronic systolic congestive heart failure, lung cancer, coronary artery disease with left main disease, rapid atrial fibrillation, sacral decubitus ulcers. DISCHARGE DIAGNOSES: Severe hyponatremia, encephalopathy, chronic systolic congestive heart failure, lung cancer, coronary artery disease with left main disease, rapid atrial fibrillation, sacral decubitus ulcers. HOSPITAL COURSE: The patient was admitted to the intensive care unit with severe hyponatremia. Nephrology was involved in his care. He had other comorbid diseases along with his new diagnosis of lung cancer, which included coronary artery disease. The patient was too sick to undergo cardiac evaluation for stenting and/or surgery. The patient had continued decline of health in the intensive care unit despite our measures. We were able to get his sodium above 120. His kidney function was deteriorating throughout the intensive care unit stay. He was in poor health and continued to have recurrent mucus plugs. , he has had atrial fibrillation, which is not amenable to medical therapy due to the fact of his multiple comorbid diseases, increasing oxygen demands, and dyspnea. We had Palliative care discussions, furthermore, the patient recognizes that he had unresectable lung cancer and the patient was made comfort care. The patient on 06/17/2016 at around 0230 in the morning. Family was involved in his care. DISPOSITION: . HFQ/MODL irah Mata MD / [id number] CC: Pushpa Dimas M.D.
--- NOTE | ~2016-06-13 | HP ---
History And Physical [id number] [place]. [address] NAME: JHOAN HUBER : [birth year] STATUS : ADM IN PAT#: [id number] AGE: 65 ADM/REG DATE : 06/13/16 MR#: [id number] REPORT SERV DATE: 06/13/16 DICTATED BY: GARDENIA CHUN DATE: 06/13/16 REPORT STATUS : Draft TRANSCRIBED BY: MODL DATE: 06/13/16 DATE OF ADMISSION: 06/13/2016 CHIEF COMPLAINT: A 65-year-old male with recent diagnosis of critical coronary artery disease and new onset lung cancer, now presenting with severe confusion and evidence of rapid atrial fibrillation, new onset. HISTORY OF PRESENT ILLNESS: The patient's history was obtained through careful interview over the phone with patient's son and a limited interview with the patient, himself (the patient is quite confused). There was also review made of [facility]. The patient was hospitalized earlier in 2017 with [id number] myocardial infarction, underwent a catheterization of the heart that showed a 95% left main disease and 95% LAD lesion with a 75% OM2 lesion. 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 He was seen in consultation by Dr. Cortez. At this time, we are not certain of patient's plan for treatment of the cancer. The patient has been home and living with his girlfriend who has been helping to take care of him. All that is known is that over last few days patient has been increasingly irritable, confused, lethargic. Finally, when the son went to check on him. On the day leading up to admission, he was quite altered and he had defecated on himself and was actually picking at his feces and it seemed that he was trying to even put them in his mouth. He was saying things that were nonsensical and at sometimes was even lethargic and difficult to arouse. According to the son, the patient has not had really major complaints though over last few days. When I discuss any complaints with the patient himself, he literally denies any symptoms and denies everything on review of systems. He specifically denies any chest pain. No shortness of breath. No nausea or vomiting. He recognizes that he has defecated on himself, but he denies actual diarrhea. REVIEW OF SYSTEMS: I went through a 14-point review of systems with the patient and it was completely negative, although could question validity in light of the patient's confusion. PAST MEDICAL HISTORY: 1. Coronary artery disease as mentioned in the HPI, followed by Dr. Reed. 2. Lung cancer, followed Dr. Cortez. 3. Systolic congestive heart failure. Ejection fraction 25%. History And Physical [address] [address] NAME: JHOAN HUBER : [birth year] STATUS : ADM IN [facility]#: [id number] AGE: 65 ADM/REG DATE : 06/13/16 MR#: [id number] REPORT SERV DATE: 06/13/16 DICTATED BY: GARDENIA CHUN DATE: 06/13/16 REPORT STATUS : Draft TRANSCRIBED BY: NELSY DATE: 06/13/16 4. Hyponatremia with a baseline sodium of 127, early in 2017. 5. Thoracentesis for what appears to be a malignant pleural effusion. 6. Childhood asthma. 7. COPD. 8. Pneumonia. PAST SURGICAL HISTORY: Denies any at this time. SOCIAL HISTORY: He smokes cigarettes. No alcohol abuse. He has been living with his girlfriend. He is . He is disabled. He has two sons. He lives in [place], [place]. FAMILY HISTORY: Mother with congestive heart failure and coronary artery disease. No family history of lung cancer. CURRENT MEDICATIONS: Include ProAir, aspirin 81 mg p.o. daily, Lipitor, Coreg 3.25 mg p.o. b.i.d., Lasix 40 mg p.o. b.i.d., hydrocodone, Prinivil 5 mg p.o. daily, Mobic 7.5 mg as needed, nitroglycerin p.r.n., Anoro Ellipta, and prednisone 40 mg p.o. daily. PHYSICAL EXAMINATION: VITAL SIGNS: Temperature 98.2, pulse 149, blood pressure 120/79, respiratory rate 22, and O2 saturation 99% on room air. GENERAL: An ill-appearing male, mostly from him being altered in mental status, lethargic but easily arousable. HEENT: Pupils equal, round, and reactive to light. No conjunctival pallor. No scleral icterus. Nares are patent. Oropharynx is clear of obstruction. Moist mucous membranes. NECK: Trachea midline. No thyromegaly. LYMPH: No cervical lymphadenopathy. No supraclavicular lymphadenopathy. RESPIRATORY: Actually, clear to auscultation at this time. I do not appreciate wheezes, rhonchi, nor rales, and he has a normal respiratory effort. CARDIOVASCULAR: Irregularly irregular, tachycardic. No murmurs, rubs, or gallops. He does have trace minimally pitting lower extremity edema that is symmetrical. ABDOMEN: Soft, nontender, nondistended. Normal bowel sounds auscultated throughout. No organomegaly. DERMATOLOGICAL: The patient's sacrum has two discrete areas of ulceration with slight purulent drainage. It is about a stage II by my estimation with no surrounding erythema, heat, but they are tender to palpation. Otherwise, warm and dry extremities. No pallor. No cyanosis. PSYCHIATRIC: The patient is lethargic, but arousable. He has a flat affect, but he claims to be in a good mood. He is oriented to location at this moment but is completely disoriented to details of time and is poorly oriented to the details of his recent history and sometimes gives frankly nonsensical responses to some of my questions. LABORATORY DATA: White blood cell count 17.3, hemoglobin 14, hematocrit 38, and platelets 206. Sodium 114, potassium 3.4, chloride 73, bicarb 28, BUN 10, creatinine 0.76, glucose 126, brain natriuretic peptide 875, troponin 0.19. INR 1.2. AST 50, ALT 31, alkaline phosphatase 111, total bilirubin 2.0. History And Physical [address] [address] NAME: JHOAN HUBER : [birth year] STATUS : ADM IN [facility]#: [id number] AGE: 65 ADM/REG DATE : 06/13/16 MR#: [id number] REPORT SERV DATE: 06/13/16 DICTATED BY: GARDENIA CHUN DATE: 06/13/16 REPORT STATUS : Draft TRANSCRIBED BY: NELSY DATE: 06/13/16 STUDIES: 1. Chest x-ray by my own evaluation shows some kind of interstitial lung disease, widening of the mediastinum. There is no recurrence of the patient's pleural effusion. 2. EKG by my own evaluation shows rapid atrial fibrillation. No ST changes of significance. 3. CT scan of the brain without contrast was read as being "negative.". ASSESSMENT AND PLAN: 1. Severe hyponatremia with encephalopathy. I discussed the case with Dr. Regina Agarwal, skirt panel assembler. The plan is to place the patient on 3% sodium chloride for four hours, then recheck a basic metabolic panel and follow sodium closely. We will check SIADH studies. We will place on free water restriction. 2. Chronic systolic congestive heart failure with ejection fraction of 25%, mild volume overload but not critical by exam per Nephrology. We will hold Lasix for next few hours and reassess later this morning. 3. Lung cancer. New diagnosis in 2017, large cell, consult Dr. Cortez, oncologist. 4. Coronary artery disease with 95% left main, 95% LAD, and 75% OM2 disease. Medical management only for now. Noted elevated troponin but no chest pain. We will place on heparin drip IV and consult Cardiology. 5. Rapid atrial fibrillation, new onset. Placed on a Cardizem drip which has had excellent rate control here in the emergency department. Place on heparin drip. Obtain a Cardiology consult. 6. Leukocytosis, possibly from being on prednisone. Check procalcitonin. Monitor for fevers. 7. Stage II sacral decubitus ulcers. Obtain a Wound Care consult. Turn q.2 hours. I discussed the case with Dr. Pushpa Dimas, critical care physician. KPL/MODL Gardenia Chun M.D. / [id number] CC: Pamela Arroyo M.D. Pamela Crooks IV, M.D.
--- NOTE | ~2016-06-13 | CN ---
Consultation Report [facility] [address] [place]. [address] NAME: JHOAN HUBER : [birth year] STATUS : ADM IN PAT#: [id number] AGE: 65 ADM/REG DATE : 06/13/16 MR#: [id number] REPORT SERV DATE: 06/15/16 DICTATED BY: YASMIN MONTGOMERY DATE: 06/15/16 REPORT STATUS : Draft TRANSCRIBED BY: MODL DATE: 06/15/16 PALLIATIVE CARE CONSULTATION DATE OF CONSULTATION: 06/15/2016 TIME: 9:30 to 10:30. ALLERGIES: NONE SPECIFIED. REASON FOR CONSULTATION: Consult requested for palliative care, transition, and non-symptom management. HISTORY OF PRESENT ILLNESS: This is a 65-year-old white male who presented some time ago with some increasing dyspnea and hyponatremia. He was evaluated in the last 60 days and found to have severe three-vessel coronary artery disease and depressed ejection fraction of about 25%. His medications were adjusted a bit. 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 He has had some weight loss and general debility. He is now readmitted with increasing dyspnea, increasing oxygen demands, atrial fibrillation, and anxiety. The patient's sodium has been as low as 112, and his fractional sodium excretion is 0.05%. He does have a malignant effusion noted. PAST MEDICAL HISTORY: Coronary artery disease and cardiomyopathy. FAMILY HISTORY: Noncontributory. SOCIAL HISTORY: He lives with his girlfriend, but he is very clearly alert and requesting that either of his sons be his spokesperson should he be unable to make medical decisions. He is continuing to be a smoker up until admission. Rare alcohol use. No substance abuse. 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 REVIEW OF SYSTEMS: Remarkable for about a 20-pound weight loss, increasing fatigue, weakness, and endurance. He also complains of cough, congestion, and difficulty taking a deep breath. He is short of breath with activity. He does have a cough, wheezing, and again has some chest pain with deep inspiration or coughing. GENITOURINARY: Negative. HEME: Negative. MUSCULOSKELETAL: Negative. NEUROLOGICAL: Awake and alert. He denies mental status changes, although he has been confused and was incontinent when he was admitted with hyponatremia. These are clearing, and his mentation is now appropriate. He does have a history of anxiety. Consultation Report [address] [place]. [address] NAME: JHOAN HUBER : [birth year] STATUS : ADM IN PAT#: [id number] AGE: 65 ADM/REG DATE : 06/13/16 MR#: [id number] REPORT SERV DATE: 06/15/16 DICTATED BY: YASMNI MONTGOMERY DATE: 06/15/16 REPORT STATUS : Draft TRANSCRIBED BY: NELSY DATE: 06/15/16 He has had some aches and pains and some chest pain, but no overall major pain issues. PHYSICAL EXAMINATION: Today shows an awake, alert gentleman sitting upright in bed, starting on a non-rebreather and being transitioned to a Vapotherm oxygen system. His dyspnea is 7/10. His pain score is 3/10. His palliative performance score is 30%. As part of my initial interview with the patient, he was able to articulate the fact that he has lung cancer and he knows that he has heart trouble and is not a surgical candidate. He agrees that being placed on life support or resuscitated at this point really, but not be part of his plan. A DNR was thus executed. VITAL SIGNS: Blood pressure 112/86, pulse 118 to 140 and atrial fibrillation, respiratory rate is 32, and his pulse ox on non-rebreather is 89%. GENERAL: We have an awake, alert, oriented, and appropriate gentleman who appears to be a slightly overwhelmed and a bit anxious. ENT SYSTEM: Unremarkable. HEART: Shows an irregularly irregular rhythm. S1 and S2. I cannot appreciate murmurs given his tachycardia. Pulses are somewhat decreased but symmetrical. LUNGS: Respiratory status is somewhat labored. He has moderate dyspnea as noted above. He has decreased breath sounds throughout the right hemithorax. It is dull to percussion. GASTROINTESTINAL: Positive bowel sounds. Nontender. No rebound. No guarding. GENITOURINARY: Not examined. HEMATOLOGIC: Negative. MUSCULOSKELETAL: Diffuse weakness. NEUROLOGICAL: He is awake and alert at this time. Answers questions appropriately and quickly. He is overall a bit anxious and while he denies overall pain, certainly is quite dyspneic and in [place] level of distress. He has multiple bruises over the right side of his head. IMPRESSION, RECOMMENDATIONS, AND PLAN: This is an unfortunate lung cancer patient with hyponatremia, fairly low fractional excretion of sodium, and increasing dyspnea with right hemithorax being opacified on the chest x-ray and by examination. He is now a DNR. We will certainly attempt to meet with his family and to facilitate further transitions. I wonder the addition of the Vapotherm temporarily might be helpful and possibly a PleurX catheter would be symptomatically beneficial to him. I am a bit concerned about the 3% saline plans that we have. Certainly, his mentation has improved with that; however, his breathing has gotten worse. Given his ejection fraction and other findings, I will discuss that with Dr. Harper. ESTELA/NELSY Yasmin Consultation Report [address] [place]. [address] NAME: JHOAN HUBER : [birth year] STATUS : ADM IN PAT#: [id number] AGE: 65 ADM/REG DATE : 06/13/16 MR#: [id number] REPORT SERV DATE: 06/15/16 DICTATED BY: YASMIN MONTGOMERY DATE: 06/15/16 REPORT STATUS : Draft TRANSCRIBED BY: NELSY DATE: 06/15/16 Derek Montgomery M.D. / [id number] CC: Pushpa Dimas M.D. NO PCP
[~2016-06-13 03:42] MED LIST: ANOROELLIPTA INH; ASA5GR PO; ASAB PO; COREG3 PO; L40 PO; LIPITOR40; MOBIC7.5 PO; NORCO1 TA1 PO; NTG150 SL; P20 PO; PRIN5 PO; PROAIR HFA INH
[2016-06-13 03:52] LABS: BASOPHILS 0.1 %; BASOPHILS ABSOLUTE 0.01 10/3/uL (0.0-0.16); EOSINOPHILS 0 %; HEMATOCRIT 38.3 % (40.0-51.0); HEMOGLOBIN 14.1 g/dL (13.6-17.8); IMMATURE GRANULOCYTES 0.3 %; IMMATURE GRANULOCYTES ABSOLUTE 0.06 10/3/uL (0.0-0.11); LYMPHOCYTES 4.5 %; LYMPHOCYTES ABSOLUTE 0.78 10/3/uL (0.67-4.30); MEAN CORPUSCULAR HEMOGLOB 29.9 pg (26.0-34.0); MEAN PLATELET VOLUME 9.4 fL (9.2-13.0); MONOCYTES 6.8 %; MONOCYTES ABSOLUTE 1.17 10/3/uL (0.21-1.20); NEUTROPHILS 88.3 %; NEUTROPHILS ABSOLUTE 15.31 10/3/uL (2.02-8.40); PLATELET COUNT 206 10/3/uL (150-400); RBC DISTRIBUTION WIDTH 13.2 % (12.0-16.0); RED CELL COUNT 4.72 10/6/uL (4.7-6.1)
[2016-06-13 03:54] LABS: ER CBC TAT 0 Hrs 10 Mins; MANUAL DIFF NO %; MEAN CORPUS HGB CONC 36.8 g/dL (32.0-36.0); MEAN CORPUSCULAR VOLUME 81.1 fL (80-100); WHITE BLOOD CELLS 17.3 10/3/uL (4.5-10.5)
[2016-06-13 04:01] LABS: INTERNATIONAL NORMAL RATI 1.2 UNITS (-); PARTIAL THROMBO TIME 32.4 SEC (22.5-37.2); PROTIME (NOT ORD) 14.7 SEC (12.0-14.5)
[2016-06-13 04:05] LABS: BUN (BLOOD UREA NITROGEN) 10 MG/DL (6-23); CO2 (CARBON DIOXIDE) 28 MMOL/L (24-34); CREATININE 0.76 MG/DL (0.70-1.30); DIRECT BILIRUBIN 0.9 MG/DL (0.0-0.4); GFR AFRICAN AMERICAN 110 ML/MIN (>=60); GFR NON AFRICAN AMERICAN 95 ML/MIN (>=60); POTASSIUM, SERUM 3.4 MMOL/L (3.5-5.3); SGOT(AST) 50 U/L (5-40); SGPT(ALT) 31 U/L (5-65)
[2016-06-13 04:06] LABS: CHLORIDE, SERUM 73 MMOL/L (96-112); SODIUM, SERUM 114 MMOL/L (135-148)
[2016-06-13 04:07] LABS: ALKALINE PHOSPHATASE 111 U/L (45-117); CALCIUM, SERUM 8.2 MG/DL (8.5-10.4); CHEST PAIN PROFILE TAT 0 Hrs 23 Mins; GLUCOSE, SERUM 126 MG/DL (60-99); INDIRECT BILIRUBIN(NOT ORDER) 1.1 MG/DL (0.1-0.9); TROPONIN I 0.19 NG/ML (<0.05)
[2016-06-13 08:51] LABS: PROCALCITONIN 0.12 ng/mL (<0.5)
[2016-06-13 08:54] LABS: A/G RATIO 0.8 (0.7-1.9); GLOBULIN 3.9 G/DL (2.5-4.1); TOTAL PROTEIN 6.9 G/DL (6.0-8.5)
[2016-06-13 10:01] LABS: BASOPHILS 0 %; EOSINOPHILS 0 %; HEMATOCRIT 35.3 % (40.0-51.0); HEMOGLOBIN 13.4 g/dL (13.6-17.8); IMMATURE GRANULOCYTES 0.3 %; IMMATURE GRANULOCYTES ABSOLUTE 0.05 10/3/uL (0.0-0.11); LYMPHOCYTES 5.7 %; LYMPHOCYTES ABSOLUTE 0.86 10/3/uL (0.67-4.30); MEAN CORPUSCULAR HEMOGLOB 30.5 pg (26.0-34.0); MEAN CORPUSCULAR VOLUME 80.2 fL (80-100); MEAN PLATELET VOLUME 9.2 fL (9.2-13.0); MONOCYTES 6.1 %; MONOCYTES ABSOLUTE 0.92 10/3/uL (0.21-1.20); NEUTROPHILS 87.9 %; PLATELET COUNT 197 10/3/uL (150-400)
[2016-06-13 10:02] LABS: MANUAL DIFF NO %
[2016-06-13 10:07] LABS: ASCORBIC ACID (UR NOT ORDER) NEG (NEG); BILIRUBIN, URINE NEGATIVE (NEG); ER URINALYSIS TAT 0 Hrs 20 Mins; KETONE, URINE NEGATIVE (NEG); LEUKOCYTE ESTERASE(NOT OR NEG (NEG); NITRITE (URINE) NEG (NEG); WBC (NOT ORDERED) (RFLEX) 1 (0-5)
[2016-06-13 10:09] LABS: INTERNATIONAL NORMAL RATI 1.2 UNITS (-); PROTIME (NOT ORD) 15.5 SEC (12.0-14.5)
[2016-06-13 10:21] LABS: PARTIAL THROMBO TIME > 150.0 SEC (22.5-37.2)
[2016-06-13 10:22] LABS: PLATELET ESTIMATE ADQ (ADEQUATE); TEARDROP SHAPED RBCS OCC (0-2/OIF)
[2016-06-13 10:25] LABS: CREATININE, URINE 92.5 MG/DL
[2016-06-13 12:54] LABS: BUN (BLOOD UREA NITROGEN) 9 MG/DL (6-23); CALCIUM, SERUM 7.8 MG/DL (8.5-10.4); CHLORIDE, SERUM 74 MMOL/L (96-112); CO2 (CARBON DIOXIDE) 27 MMOL/L (24-34); CREATININE 0.67 MG/DL (0.70-1.30); GFR AFRICAN AMERICAN 116 ML/MIN (>=60); GFR NON AFRICAN AMERICAN 100 ML/MIN (>=60); GLUCOSE, SERUM 131 MG/DL (60-99)
[2016-06-13 12:55] LABS: POTASSIUM, SERUM 4.2 MMOL/L (3.5-5.3); SODIUM, SERUM 112 MMOL/L (135-148); TROPONIN I 0.14 NG/ML (<0.05)
[2016-06-13 15:23] LABS: BE (BASE EXCESS) -3.1 MEQ/L (0 +/- 2.5); CARBOXYHEMOGLOBIN 0.8 % (0-3); DEVICE NC; HCO3 (ACTUAL BICARBONATE) 21.1 MEQ/L (23-27); HEMOBLOGIN CONTENT 14.4 G/DL (14-18); INSTRUMENT SERIAL # 8083; METHEMOGLOBIN 0.1 % (0-3); O2 CONTENT 19.3 VOL% (18-24); OPERATOR ID 14947; PCO2 (CO2 TENSION) 35 MMHG (35-45); PO2 (O2 TENSION) 85 MMHG (79-93); SAMPLE Arterial; pH 7.39 (7.37-7.43)
[2016-06-13 15:24] LABS: ALLENS TEST Pos
[2016-06-13 19:20] LABS: BUN (BLOOD UREA NITROGEN) 9 MG/DL (6-23); CALCIUM, SERUM 8.3 MG/DL (8.5-10.4); CHLORIDE, SERUM 77 MMOL/L (96-112); CO2 (CARBON DIOXIDE) 28 MMOL/L (24-34); CREATININE 0.65 MG/DL (0.70-1.30); GFR AFRICAN AMERICAN 118 ML/MIN (>=60); GFR NON AFRICAN AMERICAN 101 ML/MIN (>=60); GLUCOSE, SERUM 123 MG/DL (60-99)
[2016-06-13 19:23] LABS: SODIUM, SERUM 116 MMOL/L (135-148)
[2016-06-13 23:11] LABS: BUN (BLOOD UREA NITROGEN) 9 MG/DL (6-23); CALCIUM, SERUM 7.7 MG/DL (8.5-10.4); CHLORIDE, SERUM 77 MMOL/L (96-112); CO2 (CARBON DIOXIDE) 30 MMOL/L (24-34); CREATININE 0.67 MG/DL (0.70-1.30); GFR AFRICAN AMERICAN 116 ML/MIN (>=60); GFR NON AFRICAN AMERICAN 100 ML/MIN (>=60); GLUCOSE, SERUM 134 MG/DL (60-99); POTASSIUM, SERUM 3.3 MMOL/L (3.5-5.3)
[2016-06-13 23:23] LABS: SODIUM, SERUM 118 MMOL/L (135-148)
[2016-06-13 23:24] LABS: TROPONIN I 0.14 NG/ML (<0.05)
[2016-06-14 02:30] LABS: BASOPHILS 0 %; EOSINOPHILS 0 %; HEMATOCRIT 36.5 % (40.0-51.0); HEMOGLOBIN 13.4 g/dL (13.6-17.8); IMMATURE GRANULOCYTES 0.4 %; IMMATURE GRANULOCYTES ABSOLUTE 0.05 10/3/uL (0.0-0.11); LYMPHOCYTES 5.9 %; LYMPHOCYTES ABSOLUTE 0.82 10/3/uL (0.67-4.30); MEAN CORPUS HGB CONC 36.7 g/dL (32.0-36.0); MEAN CORPUSCULAR VOLUME 81.7 fL (80-100); MONOCYTES 6.2 %; MONOCYTES ABSOLUTE 0.86 10/3/uL (0.21-1.20); NEUTROPHILS 87.5 %; NEUTROPHILS ABSOLUTE 12.12 10/3/uL (2.02-8.40); PLATELET COUNT 198 10/3/uL (150-400); RBC DISTRIBUTION WIDTH 13.6 % (12.0-16.0); RED CELL COUNT 4.47 10/6/uL (4.7-6.1); WHITE BLOOD CELLS 13.9 10/3/uL (4.5-10.5)
[2016-06-14 02:34] LABS: MANUAL DIFF NO %
[2016-06-14 02:54] LABS: ALBUMIN 2.7 G/DL (3.5-5.0); BUN (BLOOD UREA NITROGEN) 9 MG/DL (6-23); CHLORIDE, SERUM 80 MMOL/L (96-112); CO2 (CARBON DIOXIDE) 28 MMOL/L (24-34); CREATININE 0.69 MG/DL (0.70-1.30); GFR AFRICAN AMERICAN 115 ML/MIN (>=60); GFR NON AFRICAN AMERICAN 99 ML/MIN (>=60); GLUCOSE, SERUM 124 MG/DL (60-99); SODIUM, SERUM 120 MMOL/L (135-148)
[2016-06-14 03:03] LABS: PHOSPHORUS, SERUM 1.9 MG/DL (2.5-4.5); POTASSIUM, SERUM 4.4 MMOL/L (3.5-5.3)
[2016-06-14 05:14] LABS: TROPONIN I 0.14 NG/ML (<0.05)
[2016-06-14 05:50] LABS: BUN (BLOOD UREA NITROGEN) 9 MG/DL (6-23); CALCIUM, SERUM 8.1 MG/DL (8.5-10.4); CHLORIDE, SERUM 80 MMOL/L (96-112); CO2 (CARBON DIOXIDE) 29 MMOL/L (24-34); CREATININE 0.64 MG/DL (0.70-1.30); GFR AFRICAN AMERICAN 118 ML/MIN (>=60); GFR NON AFRICAN AMERICAN 102 ML/MIN (>=60); POTASSIUM, SERUM 4.4 MMOL/L (3.5-5.3); SODIUM, SERUM 121 MMOL/L (135-148)
[2016-06-14 05:54] LABS: GLUCOSE, SERUM 99 MG/DL (60-99)
[2016-06-14 06:38] LABS: TROPONIN I 0.11 NG/ML (<0.05)
[2016-06-14 12:39] LABS: BUN (BLOOD UREA NITROGEN) 9 MG/DL (6-23); CHLORIDE, SERUM 79 MMOL/L (96-112); CO2 (CARBON DIOXIDE) 29 MMOL/L (24-34); GFR AFRICAN AMERICAN 121 ML/MIN (>=60); GFR NON AFRICAN AMERICAN 105 ML/MIN (>=60); POTASSIUM, SERUM 3.8 MMOL/L (3.5-5.3); SODIUM, SERUM 120 MMOL/L (135-148)
[2016-06-14 12:40] LABS: GLUCOSE, SERUM 125 MG/DL (60-99)
[2016-06-14 16:18] LABS: BUN (BLOOD UREA NITROGEN) 10 MG/DL (6-23); CALCIUM, SERUM 8.2 MG/DL (8.5-10.4); CHLORIDE, SERUM 83 MMOL/L (96-112); CO2 (CARBON DIOXIDE) 29 MMOL/L (24-34); CREATININE 0.76 MG/DL (0.70-1.30); GFR AFRICAN AMERICAN 110 ML/MIN (>=60); GFR NON AFRICAN AMERICAN 95 ML/MIN (>=60); GLUCOSE, SERUM 157 MG/DL (60-99); POTASSIUM, SERUM 3.8 MMOL/L (3.5-5.3); SODIUM, SERUM 122 MMOL/L (135-148)
[2016-06-14 23:02] LABS: BUN (BLOOD UREA NITROGEN) 9 MG/DL (6-23); CALCIUM, SERUM 8.4 MG/DL (8.5-10.4); CHLORIDE, SERUM 81 MMOL/L (96-112); CO2 (CARBON DIOXIDE) 29 MMOL/L (24-34); CREATININE 0.62 MG/DL (0.70-1.30); GFR AFRICAN AMERICAN 120 ML/MIN (>=60); GFR NON AFRICAN AMERICAN 103 ML/MIN (>=60)
[2016-06-14 23:03] LABS: GLUCOSE, SERUM 112 MG/DL (60-99); SODIUM, SERUM 119 MMOL/L (135-148)
[2016-06-15 06:15] LABS: BASOPHILS 0 %; EOSINOPHILS 0 %; HEMATOCRIT 37.6 % (40.0-51.0); HEMOGLOBIN 13.6 g/dL (13.6-17.8); IMMATURE GRANULOCYTES 0.3 %; IMMATURE GRANULOCYTES ABSOLUTE 0.03 10/3/uL (0.0-0.11); LYMPHOCYTES 5.4 %; LYMPHOCYTES ABSOLUTE 0.61 10/3/uL (0.67-4.30); MANUAL DIFF NO %; MEAN CORPUS HGB CONC 36.2 g/dL (32.0-36.0); MEAN CORPUSCULAR HEMOGLOB 30.2 pg (26.0-34.0); MEAN CORPUSCULAR VOLUME 83.4 fL (80-100); MEAN PLATELET VOLUME 8.7 fL (9.2-13.0); MONOCYTES 6.7 %; MONOCYTES ABSOLUTE 0.76 10/3/uL (0.21-1.20); NEUTROPHILS 87.6 %; NEUTROPHILS ABSOLUTE 9.98 10/3/uL (2.02-8.40); PLATELET COUNT 183 10/3/uL (150-400); RBC DISTRIBUTION WIDTH 13.7 % (12.0-16.0); RED CELL COUNT 4.51 10/6/uL (4.7-6.1); WHITE BLOOD CELLS 11.4 10/3/uL (4.5-10.5)
[2016-06-15 06:29] LABS: BUN (BLOOD UREA NITROGEN) 9 MG/DL (6-23); CALCIUM, SERUM 8.1 MG/DL (8.5-10.4); CHLORIDE, SERUM 82 MMOL/L (96-112); CO2 (CARBON DIOXIDE) 28 MMOL/L (24-34); CREATININE 0.64 MG/DL (0.70-1.30); GFR AFRICAN AMERICAN 118 ML/MIN (>=60); GFR NON AFRICAN AMERICAN 102 ML/MIN (>=60); GLUCOSE, SERUM 132 MG/DL (60-99); POTASSIUM, SERUM 4.1 MMOL/L (3.5-5.3)
[2016-06-15 06:30] LABS: SODIUM, SERUM 119 MMOL/L (135-148)
[2016-06-15 12:50] LABS: BUN (BLOOD UREA NITROGEN) 10 MG/DL (6-23); CHLORIDE, SERUM 78 MMOL/L (96-112); CO2 (CARBON DIOXIDE) 28 MMOL/L (24-34); CREATININE 0.72 MG/DL (0.70-1.30); GFR AFRICAN AMERICAN 113 ML/MIN (>=60); GFR NON AFRICAN AMERICAN 97 ML/MIN (>=60); GLUCOSE, SERUM 214 MG/DL (60-99); SODIUM, SERUM 118 MMOL/L (135-148)
[2016-06-16 00:45] LABS: BUN (BLOOD UREA NITROGEN) 11 MG/DL (6-23); CALCIUM, SERUM 8.2 MG/DL (8.5-10.4); CHLORIDE, SERUM 83 MMOL/L (96-112); CO2 (CARBON DIOXIDE) 30 MMOL/L (24-34); CREATININE 0.65 MG/DL (0.70-1.30); GFR AFRICAN AMERICAN 118 ML/MIN (>=60); GFR NON AFRICAN AMERICAN 101 ML/MIN (>=60); POTASSIUM, SERUM 4.3 MMOL/L (3.5-5.3); SODIUM, SERUM 122 MMOL/L (135-148)
[2016-06-16 00:47] LABS: GLUCOSE, SERUM 101 MG/DL (60-99)
[2016-06-16 05:04] LABS: BASOPHILS 0.1 %; BASOPHILS ABSOLUTE 0.01 10/3/uL (0.0-0.16); EOSINOPHILS 0.1 %; EOSINOPHILS ABSOLUTE 0.01 10/3/uL (0.0-0.53); HEMOGLOBIN 13.1 g/dL (13.6-17.8); IMMATURE GRANULOCYTES 0.3 %; IMMATURE GRANULOCYTES ABSOLUTE 0.03 10/3/uL (0.0-0.11); LYMPHOCYTES 6.5 %; LYMPHOCYTES ABSOLUTE 0.69 10/3/uL (0.67-4.30); MEAN CORPUS HGB CONC 35.4 g/dL (32.0-36.0); MEAN CORPUSCULAR HEMOGLOB 30.1 pg (26.0-34.0); MEAN CORPUSCULAR VOLUME 85.1 fL (80-100); MEAN PLATELET VOLUME 9.3 fL (9.2-13.0); MONOCYTES 7.2 %; MONOCYTES ABSOLUTE 0.76 10/3/uL (0.21-1.20); NEUTROPHILS 85.8 %; NEUTROPHILS ABSOLUTE 9.08 10/3/uL (2.02-8.40); PLATELET COUNT 205 10/3/uL (150-400); RBC DISTRIBUTION WIDTH 14.3 % (12.0-16.0); RED CELL COUNT 4.35 10/6/uL (4.7-6.1); WHITE BLOOD CELLS 10.6 10/3/uL (4.5-10.5)
[2016-06-16 05:12] LABS: MANUAL DIFF NO %
[2016-06-16 05:14] LABS: ALBUMIN 2.8 G/DL (3.5-5.0); BUN (BLOOD UREA NITROGEN) 12 MG/DL (6-23); CALCIUM, SERUM 8.6 MG/DL (8.5-10.4); CHLORIDE, SERUM 84 MMOL/L (96-112); CO2 (CARBON DIOXIDE) 26 MMOL/L (24-34); CREATININE 0.83 MG/DL (0.70-1.30); GFR AFRICAN AMERICAN 106 ML/MIN (>=60); GFR NON AFRICAN AMERICAN 92 ML/MIN (>=60); POTASSIUM, SERUM 4.3 MMOL/L (3.5-5.3); SODIUM, SERUM 125 MMOL/L (135-148)
[2016-06-16 05:15] LABS: GLUCOSE, SERUM 131 MG/DL (60-99); PHOSPHORUS, SERUM 2.5 MG/DL (2.5-4.5)
[2016-06-16 13:15] LABS: BUN (BLOOD UREA NITROGEN) 15 MG/DL (6-23); CALCIUM, SERUM 8.4 MG/DL (8.5-10.4); CHLORIDE, SERUM 84 MMOL/L (96-112); CO2 (CARBON DIOXIDE) 27 MMOL/L (24-34); GFR AFRICAN AMERICAN 114 ML/MIN (>=60); GFR NON AFRICAN AMERICAN 98 ML/MIN (>=60); GLUCOSE, SERUM 121 MG/DL (60-99); POTASSIUM, SERUM 3.8 MMOL/L (3.5-5.3); SODIUM, SERUM 124 MMOL/L (135-148)
[2016-06-16 17:49] LABS: BUN (BLOOD UREA NITROGEN) 16 MG/DL (6-23); CALCIUM, SERUM 8.8 MG/DL (8.5-10.4); CHLORIDE, SERUM 88 MMOL/L (96-112); CO2 (CARBON DIOXIDE) 27 MMOL/L (24-34); CREATININE 0.81 MG/DL (0.70-1.30); GFR AFRICAN AMERICAN 107 ML/MIN (>=60); GFR NON AFRICAN AMERICAN 93 ML/MIN (>=60); GLUCOSE, SERUM 133 MG/DL (60-99); POTASSIUM, SERUM 4.4 MMOL/L (3.5-5.3); SODIUM, SERUM 126 MMOL/L (135-148)
[2016-06-16 23:06] LABS: CALCIUM, SERUM 8.3 MG/DL (8.5-10.4); CHLORIDE, SERUM 87 MMOL/L (96-112); CO2 (CARBON DIOXIDE) 27 MMOL/L (24-34); CREATININE 0.92 MG/DL (0.70-1.30); GFR AFRICAN AMERICAN 100 ML/MIN (>=60); GFR NON AFRICAN AMERICAN 86 ML/MIN (>=60); POTASSIUM, SERUM 4.6 MMOL/L (3.5-5.3); SODIUM, SERUM 127 MMOL/L (135-148)
[2016-06-16 23:13] LABS: BUN (BLOOD UREA NITROGEN) 21 MG/DL (6-23); GLUCOSE, SERUM 102 MG/DL (60-99)
== END 2016-06-17 07:50 | disposition expired | DRG 843 ==
LOC: ER 03:42 → MIC 05:44
PROVIDERS: Hospitalist; Internal Medicine Critical Care Medicine; Internal Medicine Nephrology; Internal Medicine Pulmonary Disease; Specialist
PROC: 02HV33Z Insertion of Infusion Device into Superior Vena Cava, Percutaneous Approach (ICD-10-PCS; principal; 2016-06-13)
PROC: B5181ZA Fluoroscopy of Superior Vena Cava using Low Osmolar Contrast, Guidance (ICD-10-PCS; 2016-06-13)
DX: C7A.1 Malignant poorly differentiated neuroendocrine tumors (principal); J96.01 Acute respiratory failure with hypoxia; L89.152 Pressure ulcer of sacral region, stage 2; G93.41 Metabolic encephalopathy; J91.0 Malignant pleural effusion; E22.2 Syndrome of inappropriate secretion of antidiuretic hormone; C77.0 Secondary and unspecified malignant neoplasm of lymph nodes of head, face and neck; C34.00 Malignant neoplasm of unspecified main bronchus; I42.9 Cardiomyopathy, unspecified; I50.22 Chronic systolic (congestive) heart failure; J44.9 Chronic obstructive pulmonary disease, unspecified; I25.10 Atherosclerotic heart disease of native coronary artery without angina pectoris; Z51.5 Encounter for palliative care; Z66 Do not resuscitate; F17.210 Nicotine dependence, cigarettes, uncomplicated; Z87.01 Personal history of pneumonia (recurrent); Z82.49 Family history of ischemic heart disease and other diseases of the circulatory system; Z79.82 Long term (current) use of aspirin; Z79.899 Other long term (current) drug therapy; F41.9 Anxiety disorder, unspecified; Z79.52 Long term (current) use of systemic steroids
CPT/HCPCS: 36569; 36600; 70450; 71010; 77001; 80048; 80053; 80069; 80076; 81001; 82533; 82570; 82805; 83735; 83880; 83930; 83935; 84145; 84300; 84443; 84484; 85025; 85610; 85730; 87449; 87493; 87493-59; 87641; 93005; 94640; 94667; 94668; 96374; 99291; A9270-GY; C1751; J1205; J1940; P9047